=== PATIENT | female | born 2000 | race Caucasian/White ===

== ENCOUNTER 2020-03-31 15:16 | Outpatient (CLI) | payer BC, SELFPAY ==
--- NOTE | ~2020-03-31 | US_ITS ---
EXAMINATION: US OB <=14 wk fetus w TV EXAM DATE: 03/31/2020 16:03 INDICATION: Spontaneous . First trimester. TECHNIQUE: Pelvic obstetrical transabdominal and transvaginal sonogram was performed by a technsharmin jacobson. There are multiple grayscale and Doppler images available for interpretation. There are no venkat ier studies of this gestation for comparison. FINDINGS: Uterus measures 7.4 x 4.8 x 6.4 cm. There is intrauterine gestation sac. The 1.0 cm mean sac diameter corresponds to estimated gestational age by ultrasound of 5 weeks 4 days, estimated date of confinement 11/27/2020. Yolk sac is identified, but there is no pole identified at this time . There is no sonographic evidence of subchorionic hemorrhage. Left ovary has a thick-walled cystic region measuring 2.2 x 1.6 x 1.8 cm, with proteinaceous fluid in side, some peripheral vascularity surrounding this. Most likely the corpus luteal cyst. There is no f etal pole or yolk sac identified to suggest concurrent ectopic. The right ovary is morphologically no rmal. IMPRESSION: 1. Intrauterine gestation sac, MSD corresponding to age 5 weeks 4 days. Could be viable bu t pole identified at this time. 2. Complex cystic left ovarian lesion most likely the corpus luteal cyst. 3. Consider repeat ultrasound in 1-2 weeks. Reviewed, dictated and finalized at location A. IMPRESSION: 1. Intrauterine gestation sac, MSD corresponding to age 5 weeks 4 days. Could be viable but pole identified at this time. 2. Complex cystic left ovarian lesion most likely the corpus luteal cyst. 3. Consider repeat ultrasound in 1-2 weeks.
== END 2020-03-31 15:17 | disposition home or self-care (01) ==
PROVIDERS: PCP Family Medicine; Visit Provider Obstetrics & Gynecology
DX: O26.21 Pregnancy care for patient with recurrent pregnancy loss, first trimester (principal); N83.202 Unspecified ovarian cyst, left side
CPT/HCPCS: 76801; 76817

== ENCOUNTER 2020-04-14 09:43 | Outpatient (CLI) | payer BC, SELFPAY ==
--- NOTE | ~2020-04-14 | US_ITS ---
EXAMINATION: US OB <= 14 weeks fetus DATE: 04/14/2020 10:11 INDICATION: Evaluate viability TECHNIQUE: Real-time transabdominal obstetric ultrasound. FINDINGS: Comparison to ultrasound dated 03/31/2020 The uterus measures 10.2 x 5.9 x 7.1 cm. There is an intrauterine gestational sac, with pole id entified. The crown rump length measures 1.35 cm, which correlates with a estimated gestational age of 7 weeks 4 days. heart tones are identified measuring 161 bpm. There is a small subchorioni c hemorrhage measuring 3.5 x 1.9 x 1.8 cm. IMPRESSION: 1. SL IUP with an EGA of 7 weeks, days (EDC by current ultrasound of 11/27/2020). 2: Small subchorionic hemorrhage. Reviewed, dictated and finalized at location A. IMPRESSION: 1. SL IUP with an EGA of 7 weeks, days (EDC by current ultrasound of 11/27/2020 ). 2: Small subchorionic hemorrhage.
== END 2020-04-14 09:44 | disposition home or self-care (01) ==
LOC: ANHIMG 09:46
PROVIDERS: PCP Family Medicine; Visit Provider Obstetrics & Gynecology
DX: O46.91 Antepartum hemorrhage, unspecified, first trimester (principal); Z3A.01 Less than 8 weeks gestation of pregnancy
CPT/HCPCS: 76801

== ENCOUNTER 2020-05-11 11:24 | Outpatient (CLI) | payer BC, SELFPAY ==
--- NOTE | ~2020-05-11 | US_ITS ---
EXAMINATION: US OB <= 14 weeks fetus DATE: 05/11/2020 13:44 INDICATION: Subchorionic hematoma, first trimester TECHNIQUE: Real-time pelvic transabdominal and transvaginal ultrasound was performed. COMPARISON: 04/14/2020 FINDINGS: The uterus measures 14.7 x 7.5 x 6.8 cm. There is an intrauterine gestational sac. There i s a hypoechoic area adjacent to the gestational sac which demonstrates slight interval decrease in si ze and now has a more uniformly cystic appearance. heart motion is identified measuring 171 anjali ts per minute (bpm) by M-mode Doppler. The crown rump length measures 5.3 cm , which correlates with an estimated gestational age of 12 weeks and 0 day(s) (+/-) 8 day(s). The ovaries are not visualized however no adnexal abnormality is seen. There is no free fluid in the pelvis. IMPRESSION: 1. Small subchorionic hemorrhage with slight decrease in size. Reviewed, dictated and finalized at location A.
== END 2020-05-11 11:25 | disposition home or self-care (01) ==
PROVIDERS: PCP Family Medicine; Visit Provider Obstetrics & Gynecology
DX: O43.899 Other placental disorders, unspecified trimester (principal); Z3A.00 Weeks of gestation of pregnancy not specified
CPT/HCPCS: 76801

== ENCOUNTER 2020-05-26 14:36 | Outpatient (CLI) | payer BC, SELFPAY ==
--- NOTE | ~2020-05-26 | US_ITS ---
US OB follow up 05/26/2020 15:37 Indication: Follow-up subchorionic hemorrhage Procedure: Real-time Limited obstetrical ultrasound using transabdominal technique Comparison: Comparison to multiple prior studies sequentially, with oldest reviewed study dated 03/31. Findings: There is a single living intrauterine in variable presentation. heart rate 163 BPM. Amniotic fluid is subjectively normal. No evidence for subchorionic hemorrhage on current ex amination. Ovaries not visualized. Uterus measures 14.2 x 10 x 6.6 cm. Impression: 1: Single living intrauterine with heart rate of 163 BPM. 2: No subchorionic hemorrhage identified on current study. Reviewed, dictated and finalized at location A. Impression: 1: Single living intrauterine with heart rate of 163 BPM. 2: No subchorionic hemorrhage identified on current study.
== END 2020-05-26 14:37 | disposition home or self-care (01) ==
PROVIDERS: PCP Family Medicine; Visit Provider Obstetrics & Gynecology
DX: O36.8910 Maternal care for other specified fetal problems, first trimester, not applicable or unspecified (principal)
CPT/HCPCS: 76816

== ENCOUNTER → 2020-06-28 09:01 | Outpatient (CLI) | payer BC, SELFPAY ==
--- NOTE | ~2020-06-28 | US_ITS ---
EXAMINATION: US OB >= 14 weeks Fetus EXAM DATE: 06/28/2020 09:32 INDICATION: anatomy. 2nd trimester. TECHNIQUE: Pelvic obstetrical transabdominal sonogram was performed by a technologist. There are mu ltiple grayscale and Doppler images available for interpretation. There are no earlier studies of th is gestation for comparison. FINDINGS: There is a single fetus identified in vertex presentation with a heart rate of 140 beats pe r minute. The placenta is located in the anterior position. There is no sonographic evidence of retr oplacental hemorrhage identified. Placental margin to internal cervical os distance is 4.2 cm. BIOMETRIC DATA: Biparietal diameter (BPD): 4.3cm ----------------> 18 weeks 6 days. Head circumference (HC): 16.0 cm ----------------> 18 weeks 6 days. Abdominal circumference (AC): 12.9 cm ----------> 18 weeks 3 days. Femur length (FL): 2.9 cm --------------------------> 18 weeks 5 days. These measurements are concordant. HC/AC ratio is 1.25 (The 5th -- 95th percentile range is 1.09-1.26. Estimated weight is 250 g +/- 37 g. This is the 58th percentile when the currently reported cl inical gestation age 18 weeks 3 days, clinical estimated date of delivery (MAYI-OPE) 11/26/2020 is used. estimated gestational age based on measurements from this exam is 18 weeks 5 days, with an est imated date of delivery (MAYI-AUA) 11/24/2020. ANATOMIC SURVEY: The following anatomy was abnormal: Two-vessel umbilical cord. The following anatomy is identified and is sonographically normal in appearance: Cerebral ventricles Cerebellum Cisterna magna Nuchal fold CTL-spine Four-chamber heart Diaphragm Stomach Kidneys Bladder Cord insertion IMPRESSION: 1. Single fetus in vertex presentation with heart rate 140 beats per minute. 2. Estimated weight of 250 grams, 58th percentile using the currently reported clinical gestat ion age of 18 weeks 3 days, MAYI(OPE) 11/26. 3. Two-vessel umbilical cord cord. Other anatomy normal. Reviewed, dictated and finalized at location A. IMPRESSION: 1. Single fetus in vertex presentation with heart rate 140 beats per minute. 2. Estimated weight of 250 grams, 58th percentile using the currently re ported clinical gestation age of 18 weeks 3 days, MAYI(OPE) 11/26. 3. Two-vessel umbilical cord cord. Other anatomy normal.
== END ==
PROVIDERS: Visit Provider Obstetrics & Gynecology
DX: Z34.92 Encounter for supervision of normal pregnancy, unspecified, second trimester (principal); Z3A.18 18 weeks gestation of pregnancy
CPT/HCPCS: 76805

== ENCOUNTER 2020-09-24 13:44 | Observation (INO) | payer BC, SELFPAY ==
[2020-09-24] VITALS (7 sets, daily range): BP systolic 108–119; BP diastolic 68–80; PULSE 94–106; BMI 24.2
--- NOTE | ~2020-09-24 | US_ITS ---
EXAMINATION: US right upper quadrant DATE: 09/24/2020 19:19 INDICATION: Right upper quadrant abdominal pain. TECHNIQUE: Multiple grayscale and Doppler ultrasound images of the abdomen were obtained. COMPARISON: CT abdomen and pelvis 05/04/2019 FINDINGS: The pancreas is obscured by bowel gas. The liver is normal without focal lesion. No liver s urface nodularity. There is normal flow in main portal vein. The gallbladder is absent. The common du ct is normal and measures 6 mm. IMPRESSION: 1. Normal right upper quadrant ultrasound status post cholecystectomy. Reviewed, dictated and finalized at location A. EXPORT COORDINATOR
[2020-09-24] MEDS: FAMOTIDINE 20 MG TABLET PO (15:15)
[2020-09-24 15:16] LABS: Basophils Percent Auto 0.4 % (0.2-1.2); Eosinophils Absolute Auto 0.1 K/mm3 (0-0.3); Eosinophils Percent Auto 1.3 % (0-4.4); Hematocrit 29.6 % (37.0-47.0); Hemoglobin 10.1 g/dL (12.0-15.0); Immature Granulocyte Absolute 0.06 K/mm3 (0.00-0.031); Immature Granulocyte Percent A 0.8 % (0-0.5); Lymphocytes Absolute Auto 0.92 K/mm3 (0.9-3.2); Lymphocytes Percent Auto 11.8 % (18.3-44.2); Mean Corpuscular HGB Conc 34.1 g/dl (32-36); Mean Corpuscular Hemoglobin 33.2 pg (26-34); Mean Corpuscular Volume 97.4 fl (80-100); Mean Platelet Volume 10.6 fl (7.4-10.4); Monocytes Absolute Auto 0.5 K/mm3 (0.1-0.6); Monocytes Percent Auto 6.2 % (2.6-8.5); Neutrophils Absolute Auto 6.2 K/mm3 (1.3-6.7); Neutrophils Percent Auto 79.5 % (45.5-73.1); Platelet Count Result 157 k/mm3 (150-375); Red Blood Count 3.04 M/mm3 (4.2-5.4); Red Cell Distribution Width 13.8 % (11.5-14.5); White Blood Count 7.8 K/mm3 (4.5-10.0)
[2020-09-24 15:25] LABS: Add Urine Microscopic? YES; Appearance Urine Cloudy (Clear); Bacteria Urine Trace /hpf; Bilirubin Urine Negative (Negative); Blood Urine Negative (Negative); Color Urine Yellow (Yellow); Glucose Urine UA Negative (Negative); Ketones Urine Negative (Negative); Leukocyte Esterase Ur 3+ LEU/UL (NEGATIVE); Nitrate Urine Negative (Negative); Protein Urine Negative (Negative); RBC Urine 0-2 /hpf (0-2); Squamous Epithelial Cell Urine Many /hpf (Few); Urobilinogen Urine Negative mg/dL (<2.0)
[2020-09-24 15:30] LABS: Alanine Aminotransferase 19 U/L (4-35); Albumin Level 3.7 g/dL (3.5-5.1); Alkaline Phosphatase 110 U/L (38-126); Anion Gap 6 mmol/L (8-16); Aspartate Amino Transferase 21 U/L (14-36); Bilirubin,Total 0.4 mg/dL (0.2-1.3); Blood Urea Nitrogen 7 mg/dL (7-17); Calcium 9.3 mg/dL (8.4-10.2); Carbon Dioxide 24 mmol/L (22-30); Chloride 107 mmol/L (98-107); Estimated Glomerular Filt Rate > 60; Glucose 112 mg/dL (65-105); Potassium 4.5 mmol/L (3.4-5.0); Sodium 137 mmol/L (137-145)
[2020-09-24 15:31] LABS: Amylase 54 U/L (30-110); Lipase 81 U/L (23-300)
[2020-09-24 15:54] LABS: Uric Acid 5.4 mg/dL (2.5-7.5)
[2020-09-24] MEDS: HYDROcodone/acetaminophen (*CRX) 5-325 MG TABLET 1 TAB PO (17:21)
[2020-09-24] MEDS: SIMETHICONE 80 MG TAB.CHEW PO (17:23)
[2020-09-24] MEDS: ONDANSETRON HCL ODT 4 MG TABLET PO (18:52)
[2020-09-24] MEDS: PANTOPRAZOLE 40 MG TABLET PO (18:52)
--- NOTE | 2020-09-24 19:01 | OBADM ---
This patient, Cathy Bautista, admitted to the OB room OB Post 115 for observation. Patient/family oriented to hospital policies and general routines including ID bracelet, bed and alarms, visiting hours, pain management, procedures, bathroom and other care routines, personal items, smoking policy, room service/diet, and visiting hours. Patient/Family are encouraged to report perceived risks to care and to ask questions if they do not understand what they are told or what they should do.
--- NOTE | 2020-10-08 12:05 | PM.OBTRLD ---
OB - Triage/Final Diagnosis Evaluation Laboratory results: Laboratory Tests 09/24/20 09/24/20 09/24/20 15:02 15:02 15:02 WBC 7.8 RBC 3.04 L Hgb 10.1 L Hct 29.6 L MCV 97.4 MCH 33.2 MCHC 34.1 RDW 13.8 Plt Count 157 MPV 10.6 H Immature Gran % (Auto) 0.8 H Neut % (Auto) 79.5 H Lymph % (Auto) 11.8 L [place] % (Auto) 6.2 Eos % (Auto) 1.3 Baso % (Auto) 0.4 Lymph # (Auto) 0.92 [place] # (Auto) 0.5 Eos # (Auto) 0.1 Baso # (Auto) 0.0 Abs Immat Gran (auto) 0.06 H Absolute Neuts (auto) 6.2 Absolute Nucleated RBC 0.0 Nucleated RBC % 0.0 Sodium 137 Potassium 4.5 Chloride 107 Carbon Dioxide 24 Anion Gap 6 L BUN 7 Creatinine 0.60 L Estim Creat Clear Calc Not Reportable Estimated GFR > 60 Glucose 112 H Uric Acid Calcium 9.3 Total Bilirubin 0.4 AST 21 ALT 19 Alkaline Phosphatase 110 Total Protein 6.0 L Albumin 3.7 Amylase Lipase Urine Color Yellow Urine Appearance Cloudy H Urine pH 7.0 Ur Specific [place] 1.010 Urine Protein Negative Urine Glucose (UA) Negative Urine Ketones Negative Ur Blood (Man) Negative Urine Nitrate Negative Urine Bilirubin Negative Urine Urobilinogen Negative Ur Leukocyte Esterase 3+ H Urine RBC 0-2 Urine WBC 7-9 H Ur Squamous Epith Cells Many H Urine Bacteria Trace 09/24/20 09/24/20 15:02 15:02 WBC RBC Hgb Hct MCV MCH MCHC RDW Plt Count MPV Immature Gran % (Auto) Neut % (Auto) Lymph % (Auto) [place] % (Auto) Eos % (Auto) Baso % (Auto) Lymph # (Auto) [place] # (Auto) Eos # (Auto) Baso # (Auto) Abs Immat Gran (auto) Absolute Neuts (auto) Absolute Nucleated RBC Nucleated RBC % Sodium Potassium Chloride Carbon Dioxide Anion Gap BUN Creatinine Estim Creat Clear Calc Estimated GFR Glucose Uric Acid 5.4 Calcium Total Bilirubin AST ALT Alkaline Phosphatase Total Protein Albumin Amylase 54 Lipase 81 Urine Color Urine Appearance Urine pH Ur Specific [place] Urine Protein Urine Glucose (UA) Urine Ketones Ur Blood (Man) Urine Nitrate Urine Bilirubin Urine Urobilinogen Ur Leukocyte Esterase Urine RBC Urine WBC Ur Squamous Epith Cells Urine Bacteria Final Diagnosis (1) Pain of round ligament complicating , antepartum: Code(s): O26.899 - Other specified related conditions, unspecified trimester; R10.2 - Pelvic and perineal pain Status: Acute (2) Musculoskeletal pain: Code(s): M79.18 - Myalgia, other site Status: Acute
== END 2020-09-24 20:40 | disposition home or self-care (01) ==
PROVIDERS: Admitting Provider Obstetrics & Gynecology; PCP Family Medicine; Visit Provider Obstetrics & Gynecology
DX: O26.893 Other specified pregnancy related conditions, third trimester (principal); R10.2 Pelvic and perineal pain; M79.18 Myalgia, other site; Z3A.31 31 weeks gestation of pregnancy
CPT/HCPCS: 36415; 76705; 80053; 81001; 82150; 83690; 84550; 85025; 87086; A9270; G0378; G0379

== ENCOUNTER 2020-11-13 12:22 | Outpatient (RCR) | payer BC, SELFPAY ==
[2020-10-08 12:53] VITALS: BP 113/73; PULSE 95
[2020-10-16 11:09] VITALS: BP 110/74; PULSE 99
[2020-11-09 12:16] VITALS: BP 123/74; PULSE 94
[2020-11-13 13:15] VITALS: BP 124/72; PULSE 94
== END 2020-11-22 07:56 | disposition home or self-care (01) ==
LOC: ANHOBOP 12:22
PROVIDERS: PCP Family Medicine; Visit Provider Obstetrics & Gynecology
DX: P59.9 Neonatal jaundice, unspecified (principal)
CPT/HCPCS: 59025

== ENCOUNTER 2020-11-18 06:16 | Inpatient (IN) | payer BC, SELFPAY ==
[2020-11-18] VITALS (52 sets, daily range): BP systolic 110–147; BP diastolic 67–94; PULSE 79–118; RESP 18–20; TEMP 36.7–37.2; O2SAT 100; BMI 27.1
[2020-11-18] MEDS: OXYTOCIN 30 UNITS/NS 500 ML 30 UNITS/500 ML BAG IV CONT (07:05)
[2020-11-18] MEDS: LACTATED RINGERS 1,000 ML 125 ML IV CONT ×2 (07:05→08:59)
[2020-11-18 07:06] LABS: Basophils Percent Auto 0.3 % (0.2-1.2); Eosinophils Absolute Auto 0.2 K/mm3 (0-0.3); Eosinophils Percent Auto 1.7 % (0-4.4); Hematocrit 30.6 % (37.0-47.0); Hemoglobin 10.3 g/dL (12.0-15.0); Immature Granulocyte Absolute 0.07 K/mm3 (0.00-0.031); Immature Granulocyte Percent A 0.7 % (0-0.5); Lymphocytes Absolute Auto 1.24 K/mm3 (0.9-3.2); Lymphocytes Percent Auto 12.6 % (18.3-44.2); Mean Corpuscular HGB Conc 33.7 g/dl (32-36); Mean Corpuscular Hemoglobin 32.2 pg (26-34); Mean Corpuscular Volume 95.6 fl (80-100); Mean Platelet Volume 10.7 fl (7.4-10.4); Monocytes Absolute Auto 0.9 K/mm3 (0.1-0.6); Monocytes Percent Auto 8.8 % (2.6-8.5); Neutrophils Absolute Auto 7.4 K/mm3 (1.3-6.7); Neutrophils Percent Auto 75.9 % (45.5-73.1); Platelet Count Result 152 k/mm3 (150-375); Red Cell Distribution Width 13.9 % (11.5-14.5); White Blood Count 9.8 K/mm3 (4.5-10.0)
--- NOTE | 2020-11-18 07:55 | LDADM ---
This patient, Cathy Bautista, was admitted to Labor/Delivery/Recovery 107 on 11/18/20 at 06:16. Plans for labor, pain management and were discussed with patient. Patient/family oriented to hospital policies and general routines including ID bracelet, bed and alarms, visiting hours, pain management, procedures, bathroom and other care routines, personal items, smoking policy, room service/diet and guest tray routines, security routines, and visiting hours. Patient/Family are encouraged to report perceived risks to care and to ask questions if they do not understand what they are told or what they should do. See OBIX for further documentation.
--- NOTE | 2020-11-18 08:26 | P.PNAN_ITS ---
Anes - Eval Pre Procedure Procedure: labor epidural Date/Time: 11/18/20 08:26 Preop Diagnosis: labor pain Pre Op Diagnosis: Induction of Labor Patient Data Age: 20 Gender: F Height: 5 ft 6 in Weight: 76.34 kg Last Vital Signs Temp 37.2 C 11/18/20 07:10 Pulse 94 11/18/20 08:00 BP 139/90 11/18/20 08:00 Allergies Allergy/AdvReac Type Severity Reaction Status Date / Time No Known Allergies Allergy Verified 10/16/20 11:11 Home Medications Medication Instructions Recorded Confirmed Type PNV cmb#95-ferrous fumarate-FA 1 tablet PO DAILY 10/16/20 10/16/20 History [] ergocalciferol (vitamin D2) 1,250 mcg PO WEEKLY 10/16/20 10/16/20 History [Vitamin D2] ferrous sulfate 325 mg PO BID 10/16/20 10/16/20 History Laboratory Tests 11/18/20 11/18/20 06:43 06:43 WBC 9.8 K/mm3 K/mm3 (4.5-10.0) RBC 3.20 M/mm3 L M/mm3 (4.2-5.4) Hgb 10.3 g/dL L g/dL (12.0-15.0) Hct 30.6 % L % (37.0-47.0) MCV 95.6 fl fl (80-100) MCH 32.2 pg pg (26-34) MCHC 33.7 g/dl g/dl (32-36) RDW 13.9 % % (11.5-14.5) Plt Count 152 k/mm3 k/mm3 (150-375) MPV 10.7 fl H fl (7.4-10.4) Immature Gran % (Auto) 0.7 % H % (0-0.5) Neut % (Auto) 75.9 % H % (45.5-73.1) Lymph % (Auto) 12.6 % L % (18.3-44.2) [place] % (Auto) 8.8 % H % (2.6-8.5) Eos % (Auto) 1.7 % % (0-4.4) Baso % (Auto) 0.3 % % (0.2-1.2) Lymph # (Auto) 1.24 K/mm3 K/mm3 (0.9-3.2) [place] # (Auto) 0.9 K/mm3 H K/mm3 (0.1-0.6) Eos # (Auto) 0.2 K/mm3 K/mm3 (0-0.3) Baso # (Auto) 0.0 K/mm3 K/mm3 (0.0-0.1) Abs Immat Gran (auto) 0.07 K/mm3 H K/mm3 (0.00-0.031) Absolute Neuts (auto) 7.4 K/mm3 H K/mm3 (1.3-6.7) Absolute Nucleated RBC 0.0 K/mm3 K/mm3 (0.0-0.012) Nucleated RBC % 0.0 % % (0.0-0.2) RPR Pending Patient hx anesthesia problems: none Family hx anesthesia problems: none PMFSH Past Medical History Medical History (Updated 10/08/20 @ 12:06 by Renato Stephens MD) Musculoskeletal pain Pain of round ligament complicating , antepartum Family History Family History (Updated 10/25/20 @ 13:36 by Kristi Khan RN) Father Malignant neoplasm of prostate Grandparent Family history of malignant neoplasm of brain Malignant neoplasm of prostate Social History Social History Smoking status: Never smoker Alcohol intake: never Substance use: never Spiritual care concerns: No Exam Day of Procedure 11/18/20 08:26
--- NOTE | 2020-11-18 08:31 | P.PNAN_ITS ---
Anes - Eval Pre Procedure Procedure: labor epidural Date/Time: 11/18/20 08:31 Preop Diagnosis: labor pain Pre Op Diagnosis: Induction of Labor Patient Data Age: 20 Gender: F Height: 5 ft 6 in Weight: 76.34 kg Last Vital Signs Temp 37.2 C 11/18/20 07:10 Pulse 97 11/18/20 08:30 BP 144/89 H 11/18/20 08:30 Allergies Allergy/AdvReac Type Severity Reaction Status Date / Time No Known Allergies Allergy Verified 10/16/20 11:11 Home Medications Medication Instructions Recorded Confirmed Type PNV cmb#95-ferrous fumarate-FA 1 tablet PO DAILY 10/16/20 10/16/20 History [] ergocalciferol (vitamin D2) 1,250 mcg PO WEEKLY 10/16/20 10/16/20 History [Vitamin D2] ferrous sulfate 325 mg PO BID 10/16/20 10/16/20 History Laboratory Tests 11/18/20 11/18/20 06:43 06:43 WBC 9.8 K/mm3 K/mm3 (4.5-10.0) RBC 3.20 M/mm3 L M/mm3 (4.2-5.4) Hgb 10.3 g/dL L g/dL (12.0-15.0) Hct 30.6 % L % (37.0-47.0) MCV 95.6 fl fl (80-100) MCH 32.2 pg pg (26-34) MCHC 33.7 g/dl g/dl (32-36) RDW 13.9 % % (11.5-14.5) Plt Count 152 k/mm3 k/mm3 (150-375) MPV 10.7 fl H fl (7.4-10.4) Immature Gran % (Auto) 0.7 % H % (0-0.5) Neut % (Auto) 75.9 % H % (45.5-73.1) Lymph % (Auto) 12.6 % L % (18.3-44.2) [place] % (Auto) 8.8 % H % (2.6-8.5) Eos % (Auto) 1.7 % % (0-4.4) Baso % (Auto) 0.3 % % (0.2-1.2) Lymph # (Auto) 1.24 K/mm3 K/mm3 (0.9-3.2) [place] # (Auto) 0.9 K/mm3 H K/mm3 (0.1-0.6) Eos # (Auto) 0.2 K/mm3 K/mm3 (0-0.3) Baso # (Auto) 0.0 K/mm3 K/mm3 (0.0-0.1) Abs Immat Gran (auto) 0.07 K/mm3 H K/mm3 (0.00-0.031) Absolute Neuts (auto) 7.4 K/mm3 H K/mm3 (1.3-6.7) Absolute Nucleated RBC 0.0 K/mm3 K/mm3 (0.0-0.012) Nucleated RBC % 0.0 % % (0.0-0.2) RPR Pending Patient hx anesthesia problems: none Family hx anesthesia problems: none PMFSH Past Medical History Medical History (Updated 10/08/20 @ 12:06 by Renato Stephens MD) Musculoskeletal pain Pain of round ligament complicating , antepartum Family History Family History (Updated 10/25/20 @ 13:36 by Kristi Khan RN) Father Malignant neoplasm of prostate Grandparent Family history of malignant neoplasm of brain Malignant neoplasm of prostate Social History Social History Smoking status: Never smoker Alcohol intake: never Substance use: never Spiritual care concerns: No Exam Day of Procedure 11/18/20 08:31
--- NOTE | 2020-11-18 10:00 | WPDOBADMIT ---
Obstetrics - Admit Note Admission Note: 0815 AROM clear fluid /-2 vertexPrenatal record reviewed. No pertinent additions to the history and/or any subsequent changes in the physical findings that are not consistent with the expected course of the were found. Additions to the history and/or subsequent changes in the physical findings follow. None.
--- NOTE | 2020-11-18 10:01 | PM.OBPRVD ---
OB - Delivery Note Procedure Delivery date: 11/18/20 Procedure: events: Labor Induction Intrapartal events: None Induction method: AROM and per pitocin protocol Delivery monitor: external FHT and external uterine Route of delivery: Laceration Description: None Specimen: Yes Quantitative Blood Loss (ml): 160 Anesthesia type: Epidural Disposition: observation Baby Date of : 11/18/20 Time of : 09:48 Weeks of gestation at delivery: 39 Infant gender: Male Weight (pounds): 7 Weight (ounces): 14 presentation: vertex position: Left Occiput Anterior Placenta delivery description: Spontaneous cord vessel description: 2 Vessels, Nuchal Cord, Clamped/Cut and Around Body x1 score one minute: 9 score five minutes: 9
[2020-11-18] MEDS: OXYTOCIN 30 UNITS/NS 500 ML 30 UNITS/500 ML BAG 125 UNITS IV CONT (10:30)
[2020-11-18 11:13] LABS: Rapid Plasma Reagin Non-Reactive (NonReactive)
--- NOTE | 2020-11-18 12:09 | OBPPTRN ---
Patient transferred to post room # 282 via wheelchair. Support person present. Oriented to unit, room, information board, rooming in, admission packet and security measures. Patient verbalizes understanding.
[2020-11-19 05:31] LABS: Hemoglobin 9.2 g/dL (12.0-15.0)
[2020-11-19 07:50] VITALS: BP 129/85; PULSE 75; RESP 18; TEMP 36.3
--- NOTE | 2020-11-19 09:04 | PM.OBPNVD ---
OB - PN: Subj Subjective Date/time seen: 11/19/20 09:04 Patient comments: no complaints and pain well controlled baby status: doing well OB - PN: Obj Data Labs CBC & Chem 7: 11/19/20 05:23 Labs: Laboratory Results - last 24 hr 11/18/20 11/19/20 06:43 05:23 Hgb 9.2 L Hct 28.0 L RPR Non-reactive OB - PN A/P Plan day: 1 Plan: routine care, discharge home and follow up 6 weeks Comments: declines bc Time Spent With Patient Time: Total time spent is greater than 50% in coordination of care (as documented) at patient's floor/unit and/or counseling patient: Exam : Bimanual exam- vagina & uterus: other (Uterus firm, nt @U)
--- NOTE | 2020-11-19 10:36 | WPDANLDPN2 ---
Anes-Prog Note L&D Date/Time: 11/19/20 10:36 Comfortable throughout: labor and delivery Neuraxial method: epidural Epidural/Spinal procedure site: clean & non-tender Neuro status: Neuro function grossly intact. Cardiovascular status: normal Respiratory status: normal Airway patency: baseline Mental status: baseline Post-Op hydration status: normal Vital Signs: Last Vital Signs Temp 37.1 C 11/18/20 20:15 Pulse 83 11/18/20 20:15 Resp 18 11/18/20 20:15 BP 128/83 11/18/20 20:15 Pulse Ox 100 11/18/20 09:37 Pain score (VAS): 0 Post-procedural complaints: none Patient feedback: Patient satisfied with anesthetic care.
[2020-11-19] MEDS: DOCUSATE SODIUM 100 MG CAPSULE PO (13:16)
[2020-11-19] MEDS: MULTIVIT/MIN/PREN/FOL AC/IRON TABLET 1 TAB PO (13:17)
[2020-11-19] MEDS: POLYSACCHARIDE IRON COMPLEX 150 MG CAPSULE PO (13:17)
[2020-11-19] MEDS: MEASLES,MUMPS,RUBELLA VACCINE 0.5 ML VIAL SUB-Q (13:17)
[2020-11-22 08:01] VITALS: BP 138/90; PULSE 87; RESP 14; TEMP 36.9
--- NOTE | 2020-11-29 08:21 | PM.OBDSVD ---
DS: Admitting Diagnosis Admitting Diagnosis Admitting Diagnosis: DS: Discharge Diagnosis Discharge Diagnosis (1) (normal spontaneous vaginal delivery): Code(s): O80 - Encounter for full-term uncomplicated delivery Status: Acute OB - DS: Summary OB Procedures : NST and Ultrasound OB Procedures Intrapartum: Spontaneous Vag Delivery OB Procedures: : None Time Spent with Patient Time attestation: Total time spent providing and/or coordinating discharge services: DS: Data Data Completed and Pending Completed studies during hospitalization: Pending at discharge 11/18/20 10:30 Surgical [PTH] Routine Discharge Plan Discharge Attending physician on discharge: Renato Stephens Discharging Clinician: Renato Stephens Patient Disposition: Home, Self-Care Activity: may shower and pelvic rest Diet: regular Discharge Instructions: Education: Mom and Baby Guide Given to: Mother Follow-Up: Call your delivering provider's office for an appointment to be seen in: call. Mom and baby should come to the [facility] for the follow-up appointment. Appointment Date/Time: November 22, 2020 at 8:00 am What to expect at your follow-up visit: Physical Assessment Call [phone] if you are unable to keep your appointment time. BREAST CARE: * Wear a snug supportive bra. * For engorgement discomfort: Breast Feeding: * Apply warm moist washcloths * Express milk as needed to relieve engorgement * Wear loose clothing * For sore nipples: * Identify correct latch-on * Apply warm moist washcloths before and after nursing * Air dry nipples after nursing * May apply Lansinoh cream to nipples PERINEAL CARE: * Until bleeding stops, use your ermias bottle after urinating * Change your pad frequently throughout the day * No tub baths until seen by your physician - You may shower ACTIVITY: * Rest as much as possible. * Do not exercise or lift anything heavier than your baby (such as laundry or other children.) * Avoid stairs or driving as much as possible. * Do not put anything into the vagina. No douching, tampons, or sexual activity until seen by physician. NOTIFY PHYSICIAN IF YOU HAVE ANY QUESTIONS OR IF ANY OF THE FOLLOWING SYMPTOMS OCCUR: * If your perineum becomes red, swollen, or more painful than what you have experienced in the hospital. * If your vaginal bleeding becomes foul smelling. * If your vaginal bleeding becomes more heavy than a period or if your bleeding changes from pink to bright red. However, you may pass an occasional walnut-sized clot once or twice for the first week . * If you experience a sharp, shooting pain in you calves. * If you discover a hard, reddened area on your breast or if you experience flu-like symptoms. DIET: * Eat regular, well-balanced meals. * Drink plenty of fluids daily. If , drink to thirst. Patient Instructions: Antibiotic Form Stand Alone Forms: General Discharge Information Follow-up/Referrals: Renato Stephens MD [Physician] - Call for Appointment Discharge Medications: Continued ferrous sulfate 325 mg (65 mg iron) Tablet 325 mg PO BID RF: 0 ergocalciferol (vitamin D2) [Vitamin D2] 1,250 mcg (50,000 unit) Capsule 1,250 mcg PO WEEKLY RF: 0 PNV cmb#95-ferrous fumarate-FA [] 28 mg iron- 800 mcg Tablet 1 tablet PO DAILY RF: 0 Date of admission: 11/18/20 06:16 Primary Care Provider: Abhay Perez Admitting Provider: Renato Stephens Attending physician on admission: Regina Dhillon Condition: Stable
== END 2020-11-19 14:40 | disposition home or self-care (01) | DRG 807 ==
LOC: ANHLDR 10:04 → ANHOB2 11-19 03:25 → ANHLDR 11-23 10:02 → ANHOB2 11-23 10:02
PROVIDERS: Admitting Provider Obstetrics & Gynecology; PCP Family Medicine; Visit Provider Obstetrics & Gynecology Gynecology
DX: O69.89X0 Labor and delivery complicated by other cord complications, not applicable or unspecified (principal); Z37.0 Single live birth; Z3A.39 39 weeks gestation of pregnancy; O69.82X0 Labor and delivery complicated by other cord entanglement, without compression, not applicable or unspecified
CPT/HCPCS: 36415; 85014; 85018; 85025; 86592; 86850; 86900; 86901; 88307; 90710; A9270; J2590; J2795; J7120

== ENCOUNTER 2021-11-15 15:17 | Outpatient (CLI) | payer BC, SELFPAY ==
[2021-11-15 16:47] LABS: SARS-CoV-2 RNA PCR Negative (Negative)
== END 2021-11-15 15:18 | disposition home or self-care (01) ==
LOC: CHSLAB 15:19
PROVIDERS: PCP Family Medicine; Visit Provider Family Medicine
DX: J06.9 Acute upper respiratory infection, unspecified (principal); Z20.822 Contact with and (suspected) exposure to COVID-19
CPT/HCPCS: C9803; U0003; U0005

== ENCOUNTER → 2022-04-04 12:24 | Outpatient (CLI) | payer BC, SELFPAY ==
--- NOTE | ~2022-04-04 | US_ITS ---
EXAMINATION: US OB transvaginal DATE: 04/04/2022 12:53 INDICATION: Positive test. Uncertain dates. Abdominal pain. TECHNIQUE: Real-time transvaginal obstetric ultrasound. FINDINGS: No prior studies for comparison. The uterus measures 6.7 x 4.2 x 5.6 cm. Endometrium is thickened measuring 1 cm, although no gestatio nal sac or pole are identified. There is moderate free fluid in the pelvis. There is a 2.3 cm r ight ovarian cyst. The left ovary appears prominent with indistinct margins limiting evaluation of si ze. IMPRESSION: 1. Mildly thickened endometrium without evidence for intrauterine . Mildly prominent left ov jason. Considerations include very early intrauterine , failed and ectopic . Recommend follow-up with serial quantitative beta-hCG levels and ultrasound as clinically indicated . Reviewed, dictated and finalized at location A. IMPRESSION: 1. Mildly thickened endometrium without evidence for intrauterine . Mi ldly prominent left ovary. Considerations include very early intrauterine pregn talia, failed and ectopic . Recommend follow-up with serial q uantitative beta-hCG levels and ultrasound as clinically indicated.
== END ==
PROVIDERS: PCP Family Medicine; Visit Provider Family Medicine
DX: Z34.90 Encounter for supervision of normal pregnancy, unspecified, unspecified trimester (principal); Z3A.00 Weeks of gestation of pregnancy not specified; R10.84 Generalized abdominal pain
CPT/HCPCS: 76817

== ENCOUNTER → 2022-04-12 08:17 | Outpatient (CLI) | payer BC, SELFPAY ==
--- NOTE | ~2022-04-12 | US_ITS ---
US OB transvaginal 04/12/2022 08:59 Indication: Abnormal hCG levels which are decreasing Procedure: High-resolution transvaginal ultrasound of the pelvis Comparison: Ultrasound dated 04/04/2022 Findings: Uterus measures 6.4 x 4.4 x 5.4 cm. Endometrium is normal measuring 8 mm. No intrauterine g estational sac or pole identified. Right ovary contains a 5 x 3.5 x 3.5 cm complicated cyst. Le ft ovary is unremarkable measuring 2.4 x 1.5 x 1.2 cm. Small amount of free fluid in the right adnexa . Impression: 1: No evidence for intrauterine . Given the history of diminishing beta-hCG levels this like ly represents a failed . Ectopic is not excluded although less favored. There is a complicated right ovarian cyst measuring 5 cm, likely corpus luteal cyst. Recommend follow-up with q uantitative beta-hCG levels and ultrasound as clinically indicated. Reviewed, dictated and finalized at location A. Impression: 1: No evidence for intrauterine . Given the history of diminishing bet a-hCG levels this likely represents a failed . Ectopic is no t excluded although less favored. There is a complicated right ovarian cyst sandy suring 5 cm, likely corpus luteal cyst. Recommend follow-up with quantitative b eta-hCG levels and ultrasound as clinically indicated.
== END ==
PROVIDERS: PCP Family Medicine; Visit Provider Family Medicine
DX: O02.81 Inappropriate change in quantitative human chorionic gonadotropin (hCG) in early pregnancy (principal)
CPT/HCPCS: 76817

== ENCOUNTER 2022-04-14 14:10 | Emergency (ER) | payer BC, SELFPAY ==
--- NOTE | ~2022-04-14 | XR_ITS ---
XR abdomen/kub 1V 04/14/2022 14:49 INDICATION: Hematuria with abdomen pain TECHNIQUE: KUB COMPARISON: None FINDINGS: Bowel gas pattern is normal. There are cholecystectomy clips. There is no evidence of free air, mass, organomegaly, ascites or obstruction. No abnormal calculi are seen. The bones appear int act. IMPRESSION: 1: No acute abdominal abnormality identified. Reviewed, dictated and finalized at location A.
[2022-04-14 14:18] VITALS: BP 139/92; PULSE 93; RESP 16; TEMP 36.8; O2SAT 99
[2022-04-14] MEDS: KETOROLAC (*BKC) 60 MG/2 ML VIAL IM (14:50)
--- NOTE | 2022-04-14 15:29 | ED.ABDPAIN ---
HPI - Abdominal Pain General Chief Complaint: Abdominal Pain Stated Complaint: abd pain Time Seen by Provider: 04/14/22 14:30 Source: patient Mode of arrival: ambulatory Limitations: no limitations History of Present Illness HPI narrative: 22-year-old female presents with complaint of right-sided abdominal pain for several days. Also reports blood in urine for 3 to 4 weeks. Has been seeing her primary care physician for these issues. Recently had a positive test. Has had hCG levels drawn that are decreasing and has had 2 ultrasounds that show no . Patient's ultrasound on March 23 and April 04 both show a right ovarian cyst. Patient states that her PCP has not discussed with her that she has a right ovarian cyst. She reports that when blood in urine for started she was given an antibiotic but was told that urine was normal. She began having blood in urine again after completing antibiotic and was prescribed Levaquin which she is taking now. She reports that her urine and labs have been normal. She has not been referred to a urologist or a [facility]. Today she has had urgent care because she feels as though she is not getting any answers to what is causing her pain or blood in urine. All systems reviewed and negative except as noted above. Related Data Home Medications Medication Instructions Recorded Confirmed ergocalciferol (vitamin D2) 1,250 1,250 mcg PO WEEKLY 10/16/20 11/18/20 mcg (50,000 unit) capsule (Vitamin D2) ferrous sulfate 325 mg (65 mg 325 mg PO BID 10/16/20 11/18/20 iron) tablet 04/14/22 Allergies Allergy/AdvReac Type Severity Reaction Status Date / Time No Known Allergies Allergy Verified 10/16/20 11:11 Review of Systems Review of Systems: CONSTITUTIONAL: Denies fever, chills, or sweats. EYES: Denies visual changes, redness, or discharge. ENT: Denies rhinorrhea, congestion, sore throat, or otalgia. CARDIOVASCULAR: Denies chest pain, palpitations, or edema. RESPIRATORY: Denies cough or dyspnea. GASTROINTESTINAL: Reports right sided abdominal pain. Denies nausea, vomiting, or diarrhea. GENITOURINARY: Denies dysuria. Reports hematuria. SKIN: Denies rash or itching. MUSCULOSKELETAL: Denies back pain, joint pain, or myalgia. NEUROLOGIC: Denies headache, numbness, or weakness. PSYCHIATRIC: Denies anxiety or depression. All other systems reviewed are negative, except as documented in HPI. [facility] Past Medical History Medical History (Updated 04/14/22 @ 15:22 by Rina Leija NP) Musculoskeletal pain (normal spontaneous vaginal delivery) Pain of round ligament complicating , antepartum Family History Family History (Updated 10/25/20 @ 13:36 by Kristi Khan RN) Father Malignant neoplasm of prostate Grandparent Family history of malignant neoplasm of brain Malignant neoplasm of prostate Social History Social History Smoking status: Never smoker Alcohol intake: never Substance use: never Spiritual care concerns: No Comments At time of signature, agree with nursing past medical, surgical, social and family history. There is no relevant family history pertinent to the presenting complaint. Exam Narrative: GENERAL: This is a well-nourished, well-developed patient, in no apparent distress. HEAD: normocephalic, atraumatic. EYES: PERRL. Sclera clear/white. Vision is grossly intact. EARS: External ears normal NOSE: External nose normal NECK: Neck supple, non-tender without lymphadenopathy, masses or thyromegaly. CARDIOVASCULAR: Regular rate and rhythm without murmurs, gallops, or rubs. RESPIRATORY: Clear to auscultation. Breath sounds equal bilaterally. No wheezes, rales, or rhonchi. GASTROINTESTINAL: Abdomen soft, right-sided abdominal tenderness, nondistended. Bowel sounds are active. No hepato-splenomegaly, or palpable masses. No guarding. SKIN: warm, Dry, intact with no suspicious lesions or rash, good texture and turgor. NE
== END 2022-04-14 15:23 | disposition home or self-care (01) ==
PROVIDERS: Emergency Provider Nurse Practitioner Family; PCP Family Medicine
DX: R31.9 Hematuria, unspecified (principal); N83.201 Unspecified ovarian cyst, right side
CPT/HCPCS: 74018; 81003; 96372; 99213; G0463; J1885

== ENCOUNTER 2022-05-11 17:50 | Emergency (ER) | payer BC, SELFPAY ==
--- NOTE | ~2022-05-11 | CT_ITS ---
EXAMINATION: CT abdomen pelvis w con INDICATION: Right lower quadrant pain TECHNIQUE: Computed tomographic images of the abdomen and pelvis were obtained after the administrati on of 100 cc of Omnipaque 300 intravenous contrast. The dose-length product (DLP) was 291.58 mGy-cm. Automated exposure control and iterative reconstruction technique were employed. COMPARISON: 05/04/2019 FINDINGS: The lung bases are clear. The heart size is normal. The gallbladder is surgically absent. T he liver, spleen, pancreas, and adrenal glands are normal. The left kidney is unremarkable. There is a 4 mm stone at the right ureterovesicular junction which causes moderate hydroureteronephrosis. No p athologically enlarged abdominal or pelvic lymph nodes are identified. There is no free intraperitone al gas or evidence of bowel obstruction. A corpus luteum is noted in the right ovary. The appendix is normal. IMPRESSION: 1. 4 mm stone at the right ureterovesicular junction causing moderate hydroureteronephrosis. Reviewed, dictated and finalized at location F. IMPRESSION: 1. 4 mm stone at the right ureterovesicular junction causing moderate hydrouret eronephrosis.
[2022-05-11 18:05] VITALS: BP 141/97; PULSE 89; RESP 20; TEMP 36.7; O2SAT 100
[2022-05-11 18:36] LABS: Basophils Absolute Auto 0.03 K/mm3 (0.00-0.10); Basophils Percent Auto 0.3 % (0.0-1.0); Eosinophils Absolute Auto 0.13 K/mm3 (0.02-0.50); Eosinophils Percent Auto 1.2 % (1.0-6.0); Hematocrit 39.1 % (35.0-49.0); Immature Granulocyte Absolute 0.02 K/mm3 (0.00-0.00); Immature Granulocyte Percent A 0.2 % (0.0-0.0); Lymphocytes Absolute Auto 0.93 K/mm3 (1.10-4.50); Lymphocytes Percent Auto 8.9 % (18.0-42.0); Mean Corpuscular HGB Conc 33.2 g/dL (32.0-36.0); Mean Corpuscular Hemoglobin 31.8 pg (27.0-31.0); Mean Corpuscular Volume 95.6 fL (78.0-102.0); Mean Platelet Volume 11.3 fl (9.2-11.8); Monocytes Absolute Auto 0.65 K/mm3 (0.10-0.90); Monocytes Percent Auto 6.2 % (2.0-11.0); Neutrophils Absolute Auto 8.7 K/mm3 (1.7-7.2); Neutrophils Percent Auto 83.2 % (50.0-70.0); Platelet Count Result 190 K/mm3 (150-420); Red Blood Count 4.09 M/mm3 (4.20-5.40); Red Cell Distribution Width 12.4 % (11.6-14.4); White Blood Count 10.4 K/mm3 (4.8-10.8)
[2022-05-11 18:39] LABS: Add Urine Microscopic? YES; Appearance Urine Clear (Clear); Bilirubin Urine Negative (Negative); Blood Urine 3+ (Negative); Color Urine Yellow (Yellow); Glucose Urine UA Negative (Negative); Ketones Urine Negative (Negative); Leukocyte Esterase Ur Negative (Negative); Nitrate Urine Negative (Negative); Protein Urine 1+ (Negative); Specific Grav Ur >= 1.030 (1.010-1.020); Urobilinogen Urine 0.2 mg/dL (0.2-1.0)
[2022-05-11 18:45] LABS: Pregnancy On Board Control Positive; Urine Pregnancy Test Negative
[2022-05-11 18:52] LABS: Alanine Aminotransferase 20 U/L (14-59); Albumin Level 3.8 g/dL (3.4-5.0); Alkaline Phosphatase 60 U/L (46-116); Anion Gap 6 mmol/L (8-16); Aspartate Amino Transferase 12 U/L (15-37); Bilirubin,Total 0.4 mg/dL (0.00-1.00); Blood Urea Nitrogen 12 mg/dL (7-18); Calcium 8.7 mg/dL (8.5-10.1); Carbon Dioxide 25 mmol/L (21-32); Chloride 106 mmol/L (98-108); Estimated CRCL calculation 78 ml/min; Estimated Glomerular Filt Rate > 60; Glucose 136 mg/dL (70-99); Osmolality Calculated 285 mOsm/kg (285-295); Potassium 4.1 mmol/L (3.5-5.1); Sodium 137 mmol/L (136-145); Total Protein 7.1 g/dL (6.4-8.2)
[2022-05-11 18:53] LABS: Bacteria Urine 2+ /hpf; Mucus Urine Rare /lpf; RBC Urine 51-75 /hpf (0-2); Squamous Epithelial Cell Urine Few /hpf (Few); WBC Urine 0-3 /hpf (0-3)
[2022-05-11] MEDS: KETOROLAC 30 MG/ML VIAL (*BKC) IV PUSH (19:36)
[2022-05-11] MEDS: SODIUM CHLORIDE 0.9% IV 1,000 ML 999 ML IV CONT (19:37)
--- NOTE | 2022-05-11 19:56 | ED.ABDPAIN ---
HPI - Abdominal Pain General Chief Complaint: Abdominal Pain Stated Complaint: stomach pains Source: patient Mode of arrival: ambulatory Limitations: no limitations History of Present Illness HPI narrative: This is a 22-year-old female who presents with abdominal pain localizing to her right lower quadrant has had ultrasound of the pelvis about a month ago which showed a cyst in the right ovary, patient states that this pain is different rates it about a 7/10 with some some mild dysuria with no hematuria no flank pain no nausea vomiting no fever chills no chest pain or shortness of breath. MD elicited complaint: abdominal pain Onset (ago): hour(s) Pain Consistency: constant Location: RLQ Severity: moderate Pain scale (0-10): 7 Quality: aching Related Data Home Medications Medication Instructions Recorded Confirmed 04/14/22 Allergies Allergy/AdvReac Type Severity Reaction Status Date / Time No Known Allergies Allergy Verified 05/11/22 18:35 Review of Systems Review of Systems: All systems reviewed & are unremarkable except as noted in HPI and below PMFSH Past Medical History Medical History Musculoskeletal pain (normal spontaneous vaginal delivery) Pain of round ligament complicating , antepartum Family History Family History Father Malignant neoplasm of prostate Grandparent Family history of malignant neoplasm of brain Malignant neoplasm of prostate Social History Social History Smoking status: Never smoker Alcohol intake: never Substance use: never Spiritual care concerns: No Exam Const: General: healthy appearing HENMT: Head: normal to inspection Face and sinus: normal facial exam Mouth: Yes Normal oral and palatal mucosa present Eyes: Conjunctivae: conjunctivae normal Pupils: Equal, round and reactive pupils present EOM: EOMs intact bilaterally Neck: Neck: normal visual inspection, no lymphadenopathy and no meningeal signs Chest: Chest palpation & inspection: normal inspection of the chest Resp: Effort & Inspection: normal respiratory effort Auscultation: clear to auscultation bilaterally Cardio: Rate: regular rate Rhythm: regular rhythm GI: GI Palp: Yes Soft to palpation and Yes Tenderness to palpation present (GI) : General: Yes bladder normal to palpation Back/Spine/Pelvis: Back: no CVA tenderness Skin: General skin exam: normal color Rashes: no rashes Wounds: no wounds Neuro: General: patient oriented x3, moves all extremities and no meningeal signs Extrem: General: normal to inspection and no clubbing, cyanosis or edema Psych: Mental Status: mental status grossly normal Affect: normal affect Course Course Emergency Course: CT scan reviewed with patient patient has a 4mm kidney stone at the UVJ, patient did receive Toradol pain has improved, a UA and blood work reviewed with patient will give patient a strainer to go home with and prescriptions for pain. Vital Signs Vital signs: Vital Signs Temperature 36.7 C 05/11/22 18:05 Pulse Rate 89 05/11/22 18:05 Respiratory Rate 20 05/11/22 18:05 Blood Pressure 141/97 H 05/11/22 18:05 Pulse Oximetry 100 05/11/22 18:05 Oxygen Delivery Room Air 05/11/22 18:05 Temperature 36.7 C 05/11/22 18:05 Pulse Rate 89 05/11/22 18:05 Respiratory Rate 20 05/11/22 18:05 Blood Pressure 141/97 H 05/11/22 18:05 Pulse Oximetry 100 05/11/22 18:05 Oxygen Delivery Room Air 05/11/22 18:05 MDM - Abdominal Pain Lab Data Result diagrams: 05/11/22 18:28 05/11/22 18:28 Labs: Lab Results 05/11/22 05/11/22 05/11/22 Range/Units 18:16 18:28 18:28 WBC 10.4 (4.8-10.8) K/mm3 RBC 4.09 L (4.20-5.40) M/mm3 Hgb 13.0 (12.0-15.0) g/dL Hct 39.1 (35.0-
[2022-05-11 20:18] VITALS: PULSE 88; RESP 16; O2SAT 98
== END 2022-05-11 20:19 | disposition home or self-care (01) ==
PROVIDERS: Emergency Provider Emergency Medicine; PCP Family Medicine
DX: N20.0 Calculus of kidney (principal)
CPT/HCPCS: 36415; 74177; 80053; 81001; 81025; 85025; 96361; 96374; 99284; J1885; J7030; Q9967

== ENCOUNTER → 2022-06-13 11:20 | Outpatient (CLI) | payer BC, SELFPAY ==
--- NOTE | ~2022-06-13 | US_ITS ---
US retroperitoneal comp 06/13/2022 11:35 Procedure: Realtime transabdominal ultrasound of the kidneys and bladder. Indication: Right hydronephrosis. Recent kidney stones. Comparison: No prior studies for comparison. Findings: Renal echotexture is normal bilaterally without hydronephrosis, contour deforming mass or r enal calculus. The right kidney measures 10.3 cm and left kidney measures 10 cm. Bladder within norm al limits. Impression: 1: Unremarkable renal ultrasound. No stones, masses or hydronephrosis. Reviewed, dictated and finalized at location A. Impression: 1: Unremarkable renal ultrasound. No stones, masses or hydronephrosis.
== END ==
PROVIDERS: PCP Family Medicine; Visit Provider Nurse Practitioner Family
DX: N20.1 Calculus of ureter (principal)
CPT/HCPCS: 76770

== ENCOUNTER 2022-11-16 09:44 | Outpatient (CLI) | payer BC, SELFPAY ==
[2022-11-16 09:59] LABS: Basophils Absolute Auto 0.03 K/mm3 (0.00-0.10); Basophils Percent Auto 0.7 % (0.0-1.0); Eosinophils Absolute Auto 0.25 K/mm3 (0.02-0.50); Eosinophils Percent Auto 5.5 % (1.0-6.0); Hemoglobin 12.9 g/dL (12.0-15.0); Immature Granulocyte Absolute 0.01 K/mm3 (0.00-0.00); Immature Granulocyte Percent A 0.2 % (0.0-0.0); Lymphocytes Absolute Auto 1.21 K/mm3 (1.10-4.50); Lymphocytes Percent Auto 26.7 % (18.0-42.0); Mean Corpuscular HGB Conc 32.3 g/dL (32.0-36.0); Mean Corpuscular Hemoglobin 29.9 pg (27.0-31.0); Mean Corpuscular Volume 92.6 fL (78.0-102.0); Mean Platelet Volume 10.8 fl (9.2-11.8); Monocytes Absolute Auto 0.41 K/mm3 (0.10-0.90); Monocytes Percent Auto 9.1 % (2.0-11.0); Neutrophils Absolute Auto 2.6 K/mm3 (1.7-7.2); Neutrophils Percent Auto 57.8 % (50.0-70.0); Platelet Count Result 212 K/mm3 (150-420); Red Blood Count 4.32 M/mm3 (4.20-5.40); Red Cell Distribution Width 12.9 % (11.6-14.4); White Blood Count 4.5 K/mm3 (4.8-10.8)
[2022-11-16 11:33] LABS: Alanine Aminotransferase 21 U/L (14-59); Albumin Level 4.1 g/dL (3.4-5.0); Alkaline Phosphatase 73 U/L (46-116); Anion Gap 7 mmol/L (8-16); Aspartate Amino Transferase 10 U/L (15-37); Bilirubin,Total 0.7 mg/dL (0.00-1.00); Blood Urea Nitrogen 11 mg/dL (7-18); Calcium 9.1 mg/dL (8.5-10.1); Carbon Dioxide 29 mmol/L (21-32); Chloride 104 mmol/L (98-108); Estimated Glomerular Filt Rate > 60; Free T4 Free Thyroxine 1.08 ng/dL (0.76-1.46); Glucose 88 mg/dL (70-99); Iron 78 ug/dL (50-170); Osmolality Calculated 288 mOsm/kg (285-295); Potassium 3.9 mmol/L (3.5-5.1); Sodium 140 mmol/L (136-145); Thyroid Stimulating Hormone 2.05 uIU/mL (0.36-3.74); Total Protein 7.5 g/dL (6.4-8.2); Vitamin B12 403 pg/mL (193-986)
[2022-11-19 18:08] LABS: Vitamin D 25 Hydroxy 20 ng/mL (30-100)
== END 2022-11-16 09:45 | disposition home or self-care (01) ==
LOC: CHSLAB 09:46
PROVIDERS: PCP Nurse Practitioner Family; Visit Provider Nurse Practitioner Family
DX: E55.9 Vitamin D deficiency, unspecified (principal); E61.1 Iron deficiency; R53.83 Other fatigue
CPT/HCPCS: 36415; 80053; 82306; 82607; 83540; 84439; 84443; 85025

== ENCOUNTER 2023-02-16 12:48 | Outpatient (RCR) | payer BC, SELFPAY | END 2023-05-15 23:59 | disposition home or self-care (01) | LOC: ANHLAB 12:48 | PROVIDERS: PCP Nurse Practitioner Family; Visit Provider Obstetrics & Gynecology | DX: O20.0 Threatened abortion (principal); O36.0130 Maternal care for anti-D [Rh] antibodies, third trimester, not applicable or unspecified; Z3A.00 Weeks of gestation of pregnancy not specified | CPT/HCPCS: 36415; 84702; 85461; 86850; 86900; 86901 ==

== ENCOUNTER 2023-02-19 09:16 | Outpatient (RCR) | payer BC, SELFPAY ==
--- NOTE | 2023-02-19 10:13 | PTOPEVAL1 ---
Assessment and note entered by George Maynard Evaluation Information Assessment Status Evaluation Diagnosis paresthesia of skin Onset 01/03/23 Subjective Information Pt. reports she developed numbness in both hands around 01/03/23. She reports that the numbness was on/off initially, but is now constant. Pt. reports that intensity increases with dishes, or household activities. She reports that she cannot sense hot water on the front of the tips of her fingers. She reports she has no difficulty with sleeping. Pt. stays home with her children currently. She reports that she has no pain in the neck or arms. She was given a pain medication but stopped after a week due to lack of effectiveness. Pt. reports that she still forces herself to do all normal activities despite her symptoms. she reports her goal is to reduce the numbness in her hands. Reported Pain Level Pain Score 5: Self Report Assessment PT Clinical Summary Pt. is a 23 year old female who enters the clinic due to development of paresthesia in the right and left hand. She presents with indication of possible carpal tunnel with special testing. At this time pt. presents with impaired postural awareness as well as impaired senstation. Continued skilled PT is indicated in order to improve these areas to improve pt. comfort with IADL performance. Plan of Care Interventions Mechanical Traction,Therapeutic Activities, Therapeutic Exercise PT Services Indicated Yes Treatment Frequency and 2x/week x 4 visits Duration These treatments will address the objective and functional deficits as defined above. The patient will be advanced safely and appropriately in order for the patient to progress towards his/her prior level of function. Additional exercises will be introduced and as well as a comprehensive home exercise program upon discharge, if needed, ?to ensure carryover of functional gains achieved in the clinic. This treatment plan has been reviewed and agreement upon by the patient.
--- NOTE | 2023-03-02 08:53 | PTOPDC ---
Assessment and note entered by Mary Ann Loco DPT Evaluation Information Assessment Status Re-evaluation Diagnosis paresthesia of skin Onset 01/03/23 Subjective Information February reports no change in symptoms. She reports tingling continues to be worse when she is in contact with water. She reports she has been compliant with HEP. Reported Pain Level Pain Score 6: Self Report Assessment PT Clinical Summary Patient has been seen for 4 visits in skilled PT. Patient continues to demonstrate numbness in B hands with no change in symptoms. She reports she has been compliant with HEP. She was educated on follow up with MD due to persistent symptoms and will be discharge at this time. Plan of Care PT Services Indicated No
== END 2023-03-02 16:28 | disposition home or self-care (01) ==
LOC: CHSPT 09:16
PROVIDERS: PCP Nurse Practitioner Family; Visit Provider Nurse Practitioner Family
DX: R20.2 Paresthesia of skin (principal)
CPT/HCPCS: 97012; 97110; 97140; 97161

== ENCOUNTER 2023-02-23 13:11 | Outpatient (RCR) | payer BC, SELFPAY | END 2023-05-24 23:59 | disposition home or self-care (01) | LOC: ANHLAB 13:11 | PROVIDERS: PCP Nurse Practitioner Family; Visit Provider Advanced Practice Midwife | DX: O03.9 Complete or unspecified spontaneous abortion without complication (principal) | CPT/HCPCS: 36415; 84702 ==

== ENCOUNTER 2023-02-27 12:05 | Outpatient (CLI) | payer BC, SELFPAY | END 2023-02-27 12:06 | disposition home or self-care (01) | LOC: ANHLAB 12:07 | PROVIDERS: PCP Nurse Practitioner Family; Visit Provider Advanced Practice Midwife | DX: O20.0 Threatened abortion (principal) | CPT/HCPCS: 36415; 84702 ==

== ENCOUNTER 2023-03-05 00:24 | Day surgery (SDC) | payer BC, SELFPAY ==
[2023-03-02 15:17] VITALS: BMI 24.2
--- NOTE | 2023-03-02 15:20 | PC.NURSE ---
Report to the Outpatient Waiting Room, entrance under the green pavilion located off [facility], at time 1200 on date 03/05/23. Planned Procedure Time: 1400. Time changes happen often and if your time is changed the preop area will call you the afternoon before. - You and your visitor will be asked to self-screen and do not enter if you have any COVID symptoms. - A mask is optional within the hospital at this time. Patients may have clear liquids (water, carbonated beverages, clear teas, apple juice) until 3 hours prior to surgery with a maximum of 20 ounces. - No food from midnight until time of surgery Take the following medications with a SIP of water the morning of surgery: N/A DO NOT STOP ANY OF YOUR OTHER PRESCRIPTION MEDICATIONS PRIOR TO SURGERY EXCEPT THE FOLLOWING Medications to discontinue per physician: N/A Date to take last dose: N/A Please no make-up, nail syriac, hairspray, perfume, deodorant, or body powder the day of surgery. No jewelry (including any body piercings) or valuables the day of surgery, leave them at home. Please take a shower or bath the night before, or the morning of, surgery with an antibacterial soap. Wear comfortable, loose fitting clothing. - Jewelry must be removed prior to entering the operating room. Rings and piercings that are not removed may be cut off. - The hospital will not accept responsibility for valuables. - Please leave all valuables, including medications, at home the day of surgery. If you are going home after surgery, a licensed driver guard must drive you home. - NO public transportation without another adult if you receive anesthesia. - We recommend that an adult stay with you for 24 hours following discharge. - We also recommend that you do not drive, make important decision, drink alcoholic beverages, or take any drugs that were not prescribed by your health care provider for at least 24 hours after your discharge time. Follow any additional instructions given to you from your surgeon. If you or anyone in your household have experienced Covid symptoms in the past week, please notify your surgeon or the nurse liaison at the phone number below for possible testing. Telephone instructions given to PT - ESTUARDO THOMPSON and asked if any additional questions and then verbalized understanding. Patient advised to call surgeon office or pre surgery nurse liaison [phone] if any additional questions.
--- NOTE | 2023-03-05 09:04 | P.PNAN_ITS ---
Anes - Initial Pre Proc Eval Procedure: Operation Date: 03/05/23 14:00 Proposed Procedures p Suction Dilation and Curettage - Surekha Larson MD Date/Time: 03/05/23 09:04 Surgeon: Surekha Larson MD Pre Op Diagnosis: Missed Ab Patient Data Age: 23 Gender: F Height: 1.68 m Weight: 68.05 kg Allergies Allergy/AdvReac Type Severity Reaction Status Date / Time No Known Allergies Allergy Verified 03/05/23 12:13 Home Medications Medication Instructions Recorded Confirmed Type cholecalciferol (vitamin D3) 1,250 1,250 mcg PO WEEKLY #8 caps 11/23/22 03/02/23 Rx mcg (50,000 unit) capsule Patient hx anesthesia problems: none Family hx anesthesia problems: none Results Review: All pre-operative results and documents have been reviewed as part of the pre- operative evaluation. [facility] Past Medical History Medical History (Updated 03/05/23 @ 12:55 by David Melara DO) Musculoskeletal pain (normal spontaneous vaginal delivery) Pain of round ligament complicating , antepartum Family History Family History Father Malignant neoplasm of prostate Grandparent Family history of malignant neoplasm of brain Malignant neoplasm of prostate Social History Social History Smoking status: Never smoker Alcohol intake: current Alcohol use details: RARE WHEN NOT Substance use: never Substance use type: does not use Lack of Transportation: No Lack of Food: Never True Current Housing: I Have Housing Concerned About Future Housing: No Difficulty Paying Gas/Electric Bills: No Difficulty Paying for Meds: No Currently Unemployed: No Education: High School Diploma/GED Difficulty w/ Childcare or Family Care: No Living arrangements: with family Spiritual care concerns: No Anes - Eval Final PreProcedure Day of Procedure 03/05/23 09:04 Patient weight: normal Heart: regular rate and rhythm Lungs: clear to auscultation and normal air movement Airway: Mallampati scale class II Neurological: alert and oriented Last oral intake: >/= 8 hours ASA classification: I Emergent: no Anesthetic plan: proceed Anesthesia type and monitoring: general GIVS and standard monitoring Results Review: All pre-operative results and documents have been reviewed as part of the pre- operative evaluation. Informed Consent: The patient's anesthetic plan and its attendant risks and benefits were discussed with the patient/family/POA. Questions were solicited and answers provided to the satisfaction of the patient/family/POA.
[2023-03-05 12:07] VITALS: BP 141/90; PULSE 91; RESP 20; TEMP 36.3; O2SAT 100
[2023-03-05] MEDS: ACETAMINOPHEN 500 MG TABLET 1000 MG PO (12:15)
[2023-03-05] MEDS: LACTATED RINGERS 1,000 ML 30 ML IV CONT (12:35)
[2023-03-05] MEDS: DOXYCYCLINE 100 MG/NS 100 ML 100 MG/100 ML BAG IVPB (12:55)
--- NOTE | 2023-03-05 14:29 | PM.IMHP ---
H&P: HPI History of Present Illness Date/Time: 03/05/23 14:29 Chief Complaint: incomplete ab Narrative: Cathy is a 23yo at 8w by dates with bleeding for 2+ weeks. hcg most recently went from 712 to 492. had gone up before that. US showed GS with YS, no FP. Her dates were very certain. Bleeding was heavy at first and now for 10 days has been light. this is third miscarriage and would like cytogenetics. O pos. Review of Systems Review of Systems: All systems reviewed & are unremarkable except as noted in HPI and below PMFSH Past Medical History Medical History (Updated 03/05/23 @ 14:32 by Surekha Larson MD) Musculoskeletal pain (normal spontaneous vaginal delivery) Pain of round ligament complicating , antepartum Family History Family History Father Malignant neoplasm of prostate Grandparent Family history of malignant neoplasm of brain Malignant neoplasm of prostate Social History Social History Smoking status: Never smoker Alcohol intake: current Alcohol use details: RARE WHEN NOT Substance use: never Substance use type: does not use Lack of Transportation: No Lack of Food: Never True Current Housing: I Have Housing Concerned About Future Housing: No Difficulty Paying Gas/Electric Bills: No Difficulty Paying for Meds: No Currently Unemployed: No Education: High School Diploma/GED Difficulty w/ Childcare or Family Care: No Living arrangements: with family Spiritual care concerns: No Meds Home Medications and Allergies Home Medications Medication Instructions Recorded Confirmed Type cholecalciferol (vitamin D3) 1,250 1,250 mcg PO WEEKLY #8 caps 11/23/22 03/02/23 Rx mcg (50,000 unit) capsule Allergies Allergy/AdvReac Type Severity Reaction Status Date / Time No Known Allergies Allergy Verified 03/05/23 12:13 Vital Signs Vital Signs - 24 hr 03/05/23 12:07 Temperature 97.3 F L Pulse Rate 91 Respiratory Rate 20 Blood Pressure 141/90 H Pulse Oximetry 100 Oxygen Delivery Room Air Exam Const: General: no acute distress Resp: Effort & Inspection: normal respiratory effort Auscultation: clear to auscultation bilaterally Cardio: Rate: regular rate Rhythm: regular rhythm GI: GI Palp: Yes Soft to palpation Extrem: General: normal to inspection Assessment and Plan Assessment and plan (1) Incomplete : Code(s): O03.4 - Incomplete spontaneous without complication Status: Acute (2) History of recurrent miscarriages: Code(s): 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
--- NOTE | 2023-03-05 14:34 | WPDHPUPDATE1 ---
History and Physical Update Update Date/Time: 03/05/23 14:34 History and Physical has been reviewed, including an updated exam of the patient. There are NO changes in the patient's condition. Risks, benefits, and alternatives have been discussed and questions answered. Patient agrees to proceed with procedure.
[2023-03-05] MEDS: BUPIVACAINE/EPINEPHRINE 0.25% 10 ML VIAL INFILTRATE (14:49)
--- NOTE | 2023-03-05 15:01 | W.PM.PROC2 ---
Procedure Note - Detailed Date of Procedure 03/05/23 Pre-op Diagnosis Incomplete Ab Post-op Diagnosis Same Procedure Performed suction D and C Surgeon Surekha Larson MD Anesthesia MAC Indications decreasing hcgs in setting of bleeding, no pole, and dates off by 2+ weeks Findings moderate products of conception obtained Description of Procedure The patient was taken to the OR and placed in supine position in dorsal lithotomy. She received MAC anesthesia and doxycycline. She was prepped and draped in normal fashion. A speculum was placed and the cervix was grasped with a single tooth tenaculum. A paracervical block was placed with 10cc 0.25% marcaine with epinephrine. The cervix was sequentially dilated to 8 ruiz. The suction was tested and then the suction catheter was inserted into the uterine cavity. Several passes were made until no further products of conception were obtained. The tenaculum was removed and hemostasis was obtained with pressure and monsel's solution. The speculum was removed. The patient tolerated the procedure well and was taken to the recovery room in stable condition. Estimated Blood Loss 10 Drains No Packing No Pathology Yes (cytogenetics) Complications No immediate complications Condition Stable Disposition Same day
[2023-03-05 15:02] VITALS: BP 114/75; PULSE 99; RESP 14; O2SAT 100
--- NOTE | 2023-03-05 15:13 | SUR.PHASEII ---
Patient is O+ blood type. No Rhogam needed.
[2023-03-05 15:30] VITALS: BP 126/88; PULSE 85
[2023-03-05 15:50] VITALS: BP 128/78; PULSE 74
== END 2023-03-05 16:02 | disposition home or self-care (01) ==
PROVIDERS: PCP Nurse Practitioner Family; Visit Provider Obstetrics & Gynecology
PROC: (CPT 59812; principal; 2023-03-05 14:00)
DX: O03.4 Incomplete spontaneous abortion without complication (principal); N96 Recurrent pregnancy loss
CPT/HCPCS: 59812; 88305; A9270; J2250; J2704; J3010; J7120

== ENCOUNTER 2023-03-20 09:28 | Outpatient (CLI) | payer BC, SELFPAY ==
--- NOTE | ~2023-03-20 | XR_ITS ---
Cervical Spine: AP, lateral, open-mouth views Clinical History: Pain Findings: The normal lordotic curve is maintained. The vertebral bodies and posterior elements appea r intact. The intervertebral disc spaces are well maintained. Pre-vertebral soft tissues are unremar kable. Impression: No significant abnormality is seen. Reviewed, dictated and finalized at [facility]. Impression: No significant abnormality is seen.
--- NOTE | ~2023-03-20 | XR_ITS ---
AP views of the bilateral clavicles CLINICAL HISTORY: Bilateral direction he paresthesias FINDINGS: No fracture or dislocation seen. AC joint alignment is unremarkable bilaterally. Soft tissu es are unremarkable. IMPRESSION: Unremarkable exam. Reviewed, dictated and finalized at location M. IMPRESSION: Unremarkable exam.
== END 2023-03-20 09:29 | disposition home or self-care (01) ==
LOC: CHSIMG 09:30
PROVIDERS: PCP Nurse Practitioner Family; Visit Provider Nurse Practitioner Family
DX: R20.2 Paresthesia of skin (principal)
CPT/HCPCS: 72040; 73000

== ENCOUNTER 2023-04-11 09:48 | Outpatient (CLI) | payer BC, SELFPAY ==
--- NOTE | 2023-04-11 11:00 | NEURO_ITS ---
Impression: Patient reports a history of numbness in all finger tips. # Normal nerve conduction study. # Normal needle/EMG exam. # Clinical correlation recommended. Nerve Conduction Studies Anti Sensory Summary Table Stim Site NR Peak (ms) P-T Amp (?V) Site1 Site2 Delta-P (ms) Dist (cm) Ricco (m/s) Left Median Anti Sensory (2-3nd Digit) Wrist 3.0 92.9 Wrist 2-3nd Digit 3.0 14.0 47 Wrist 3.1 90.6 Wrist 2-3nd Digit 3.0 14.0 47 Right Median Anti Sensory (2-3nd Digit) Wrist 3.0 63.2 Wrist 2-3nd Digit 3.0 14.0 47 Wrist 3.1 44.8 Wrist 2-3nd Digit 3.0 14.0 47 Left Radial Anti Sensory (Base 1st Digit) Wrist 1.8 55.3 Wrist Base 1st Digit 1.8 0.0 Right Radial Anti Sensory (Base 1st Digit) Wrist 2.0 63.9 Wrist Base 1st Digit 2.0 0.0 Left Ulnar Anti Sensory (5th Digit) Wrist 2.9 73.3 Wrist 5th Digit 2.9 14.0 48 Right Ulnar Anti Sensory (5th Digit) Wrist 2.8 54.1 Wrist 5th Digit 2.8 14.0 50 Motor Summary Table Stim Site NR Onset (ms) O-P Amp (mV) Site1 Site2 Delta-0 (ms) Dist (cm) Ricco (m/s) Left Median Motor (Abd Poll Brev) Wrist 2.9 9.7 Elbow Wrist 3.9 24.0 62 Elbow 6.8 6.7 Right Median Motor (Abd Poll Brev) Wrist 2.7 9.4 Elbow Wrist 3.9 24.0 62 Elbow 6.6 8.1 Left Ulnar Motor (Abd Dig Minimi) Wrist 2.7 6.5 A Elbow Wrist 5.2 32.0 62 A Elbow 7.9 5.9 B Elbow Wrist 3.5 22.0 63 B Elbow 6.2 6.7 Right Ulnar Motor (Abd Dig Minimi) Wrist 2.6 7.4 A Elbow Wrist 4.8 30.0 62 A Elbow 7.4 6.7 B Elbow Wrist 3.0 20.0 67 B Elbow 5.6 7.3 F Wave Studies NR F-Lat (ms) L-R F-Lat (ms) Left Median (Mrkrs) (Abd Poll Brev) 26.79 0.78 Right Median (Mrkrs) (Abd Poll Brev) 26.01 0.78 Left Ulnar (Mrkrs) (Abd Dig Min) 27.34 0.58 Right Ulnar (Mrkrs) (Abd Dig Min) 26.76 0.58 EMG Side Muscle Nerve Root Ins Act Fibs Amp Dur Recrt Comment Right 1stDorInt Ulnar C8-T1 Nml Nml Nml Nml Nml Right Ext Indicis Radial (Post Int) C7-8 Nml Nml Nml Nml Nml Right Ext Digitorum Radial (Post Int) C7-8 Nml Nml Nml Nml Nml Right BrachioRad Radial C5-6 Nml Nml Nml Nml Nml Right PronatorTeres Median C6-7 Nml Nml Nml Nml Nml Right Abd Poll Brev Median C8-T1 Nml Nml Nml Nml Nml Left 1stDorInt Ulnar C8-T1 Nml Nml Nml Nml Nml Left Ext Indicis Radial (Post Int) C7-8 Nml Nml Nml Nml Nml Left Ext Digitorum Radial (Post Int) C7-8 Nml Nml Nml Nml Nml Left BrachioRad Radial C5-6 Nml Nml Nml Nml Nml Left PronatorTeres Median C6-7 Nml Nml Nml Nml Nml Left Abd Poll Brev Median C8-T1 Nml Nml Nml Nml Nml MTDD
== END 2023-04-11 09:49 | disposition home or self-care (01) ==
PROVIDERS: PCP Nurse Practitioner Family; Visit Provider Nurse Practitioner Family
DX: R20.0 Anesthesia of skin (principal)
CPT/HCPCS: 95886; 95911

== ENCOUNTER 2023-09-24 09:16 | Outpatient (CLI) | payer BC, SELFPAY ==
[2023-09-24 10:10] LABS: Strep Group A RT-PCR NOT DETECTED (Negative)
== END 2023-09-24 09:17 | disposition home or self-care (01) ==
LOC: CHSLAB 09:18
PROVIDERS: PCP Nurse Practitioner Family; Visit Provider Family Medicine
DX: J02.9 Acute pharyngitis, unspecified (principal)
CPT/HCPCS: 87651

== ENCOUNTER 2024-09-05 13:13 | Observation (INO) | payer OTHER, SELFPAY ==
[2024-09-05] VITALS (8 sets, daily range): BP systolic 123–141; BP diastolic 74–94; PULSE 87–93; BMI 28.6
[2024-09-05] MEDS: ACETAMINOPHEN 500 MG TABLET 1000 MG PO (13:55)
--- NOTE | 2024-09-05 15:19 | PC.NURSE ---
Dr gomez called report given. ok to discharge. to return if conditions worsens
--- NOTE | 2024-09-08 12:55 | PM.OBTRLD ---
OB - Triage/Final Diagnosis Visit Information Comments/Additional reasons for admission: I have assessed the risk for this patient, Cathy Bautista, and determined that she would benefit from observation care. Final Diagnosis (1) Abdominal pain affecting : Code(s): O26.899 - Other specified related conditions, unspecified trimester; R10.9 - Unspecified abdominal pain Status: Acute
== END 2024-09-05 15:30 | disposition home or self-care (01) ==
PROVIDERS: Admitting Provider Obstetrics & Gynecology; PCP Nurse Practitioner Family; Visit Provider Obstetrics & Gynecology
DX: O26.893 Other specified pregnancy related conditions, third trimester (principal); R10.9 Unspecified abdominal pain; Z3A.31 31 weeks gestation of pregnancy
CPT/HCPCS: A9270; G0378; G0379

== ENCOUNTER 2024-10-02 14:13 | Outpatient (CLI) | payer OTHER, SELFPAY ==
--- NOTE | ~2024-10-02 | US_ITS ---
EXAMINATION: US venous doppler [facility] DATE: 10/02/2024 14:37 INDICATION: Left lower limb pain and swelling TECHNIQUE: Grayscale ultrasound images without and with compression and Doppler ultrasound images of the left lower extremity veins were obtained. COMPARISON: None. FINDINGS: The visualized portions of left common femoral vein, profunda (deep) femoral vein, femoral vein, popl iteal vein, peroneal veins, posterior tibial veins, soleal vein, gastrocnemius vein and greater saphe nous vein outflow are patent. IMPRESSION: 1. No deep venous thrombosis in the left lower limb. Reviewed, dictated and finalized at location B. DOFFER
== END 2024-10-02 14:14 | disposition home or self-care (01) ==
LOC: MICIMG 14:13
PROVIDERS: PCP Obstetrics & Gynecology; Visit Provider Obstetrics & Gynecology
DX: M79.672 Pain in left foot (principal)
CPT/HCPCS: 93971

== ENCOUNTER 2024-10-07 10:55 | Inpatient (IN) | payer OTHER, SELFPAY ==
[2024-10-07] VITALS (31 sets, daily range): BP systolic 134–162; BP diastolic 83–109; PULSE 88–110; RESP 16–20; TEMP 36.4–37; BMI 29.5
[2024-10-07 11:40] LABS: Basophils Percent Auto 0.2 % (0.2-1.2); Eosinophils Absolute Auto 0.2 K/mm3 (0-0.3); Eosinophils Percent Auto 1.6 % (0-4.4); Hematocrit 33.2 % (37.0-47.0); Immature Granulocyte Absolute 0.05 K/mm3 (0.00-0.031); Immature Granulocyte Percent A 0.5 % (0-0.5); Lymphocytes Absolute Auto 0.95 K/mm3 (0.9-3.2); Lymphocytes Percent Auto 10.2 % (18.3-44.2); Mean Corpuscular HGB Conc 33.1 g/dl (32-36); Mean Corpuscular Hemoglobin 31.2 pg (26-34); Mean Corpuscular Volume 94.1 fl (80-100); Mean Platelet Volume 11.5 fl (7.4-10.4); Monocytes Absolute Auto 0.7 K/mm3 (0.1-0.6); Monocytes Percent Auto 7.3 % (2.6-8.5); Neutrophils Absolute Auto 7.4 K/mm3 (1.3-6.7); Neutrophils Percent Auto 80.2 % (45.5-73.1); Platelet Count Result 191 k/mm3 (150-375); Red Blood Count 3.53 M/mm3 (4.2-5.4); Red Cell Distribution Width 15.1 % (11.5-14.5); White Blood Count 9.3 K/mm3 (4.5-10.0)
[2024-10-07] MEDS: LACTATED RINGERS 1,000 ML 75 ML IV CONT (11:46)
[2024-10-07] MEDS: MAGNESIUM SULF 4 GM/WATER100ML 4 GM/100 ML BAG IVPB (11:47)
[2024-10-07] MEDS: miSOPROStol 25 MCG TABLET 50 MCG BUCCAL (11:49)
--- NOTE | 2024-10-07 11:54 | LDADM ---
This patient, Cathy Bautista, was admitted to Labor/Delivery/Recovery 108 on 10/07/24 at 10:55. Plans for labor, pain management and were discussed with patient. Patient/family oriented to hospital policies and general routines including ID bracelet, bed and alarms, visiting hours, pain management, procedures, bathroom and other care routines, personal items, smoking policy, room service/diet and guest tray routines, security routines, and visiting hours. Patient/Family are encouraged to report perceived risks to care and to ask questions if they do not understand what they are told or what they should do. See OBIX for further documentation.
[2024-10-07 12:07] LABS: Alanine Aminotransferase 12 U/L (6-35); Albumin Level 3.6 g/dL (3.5-5.1); Alkaline Phosphatase 207 U/L (38-126); Anion Gap 6 mmol/L (4-12); Aspartate Amino Transferase 18 U/L (14-36); Bilirubin,Total 0.4 mg/dL (0.2-1.3); Blood Urea Nitrogen 7 mg/dL (7-17); Calcium 9.1 mg/dL (8.4-10.2); Carbon Dioxide 18 mmol/L (22-30); Chloride 112 mmol/L (98-107); Estimated CRCL calculation 132 ml/min; Estimated Glomerular Filt Rate > 60; Glucose 86 mg/dL (65-110); Potassium 3.7 mmol/L (3.4-5.0); Sodium 136 mmol/L (137-145); Uric Acid 6.2 mg/dL (2.5-7.5)
[2024-10-07] MEDS: MAGNESIUM SULF 20GM/WATER500ML 500 ML 50 MG IV CONT ×2 (12:25→22:33)
[2024-10-07 12:31] LABS: HIV 1/2 Ab P24 Ag Result Negative (Negative)
[2024-10-07 12:55] LABS: Rapid Plasma Reagin Non-Reactive (NonReactive)
[2024-10-07] MEDS: OXYTOCIN 30 UNITS/NS 500 ML 30 UNITS/500 ML BAG IV CONT (16:21)
[2024-10-07] MEDS: AMPICILLIN 2 GM/NS 100 ML 2 GM/100 ML BAG IVPB (16:21)
--- NOTE | 2024-10-07 19:22 | WPDANESEPP ---
Anes - Eval Pre Procedure Procedure: labor epidural Date/Time: 10/07/24 19:22 Surgeon: patricia Preop Diagnosis: pain during labor Pre Op Diagnosis: Induction of Labor Patient Data Age: 24 Gender: F Height: 1.68 m Weight: 83 kg Last Vital Signs Temp 37.0 C 10/07/24 18:15 Pulse 102 H 10/07/24 19:00 Resp 18 10/07/24 11:47 BP 144/83 H 10/07/24 19:00 O2 Del Method Room Air 10/07/24 11:54 Allergies Allergy/AdvReac Type Severity Reaction Status Date / Time No Known Allergies Allergy Verified 10/06/24 13:26 Home Medications Medication Instructions Recorded Confirmed Type cholecalciferol (vitamin D3) 125 125 mcg PO DAILY 06/20/23 10/06/24 History mcg (5,000 unit) capsule aspirin 81 mg tablet 81 mg PO DAILY 09/05/24 10/06/24 History vits no.126-ferrous fum 1 tablet PO DAILY 09/05/24 10/06/24 History 28 mg iron-folic acid 800 mcg tablet (Classic ) ferrous sulfate 325 mg (65 mg 325 mg PO DAILY 10/06/24 10/06/24 History iron) tablet Laboratory Tests 10/07/24 11:30 WBC 9.3 K/mm3 (4.5-10.0) RBC 3.53 L M/mm3 (4.2-5.4) Hgb 11.0 L g/dL (12.0-15.0) Hct 33.2 L % (37.0-47.0) MCV 94.1 fl (80-100) MCH 31.2 pg (26-34) MCHC 33.1 g/dl (32-36) RDW 15.1 H % (11.5-14.5) Plt Count 191 k/mm3 (150-375) MPV 11.5 H fl (7.4-10.4) Immature Gran % (Auto) 0.5 % (0-0.5) Neut % (Auto) 80.2 H % (45.5-73.1) Lymph % (Auto) 10.2 L % (18.3-44.2) [place] % (Auto) 7.3 % (2.6-8.5) Eos % (Auto) 1.6 % (0-4.4) Baso % (Auto) 0.2 % (0.2-1.2) Lymph # (Auto) 0.95 K/mm3 (0.9-3.2) [place] # (Auto) 0.7 H K/mm3 (0.1-0.6) Eos # (Auto) 0.2 K/mm3 (0-0.3) Baso # (Auto) 0.0 K/mm3 (0.0-0.1) Abs Immat Gran (auto) 0.05 H K/mm3 (0.00-0.031) Absolute Neuts (auto) 7.4 H K/mm3 (1.3-6.7) Absolute Nucleated RBC 0.000 K/mm3 (0.0-0.012) Nucleated RBC % 0.0 % (0.0-0.2) Sodium 136 L mmol/L (137-145) Potassium 3.7 mmol/L (3.4-5.0) Chloride 112 H mmol/L (98-107) Carbon Dioxide 18 L mmol/L (22-30) Anion Gap 6 mmol/L (4-12) BUN 7 mg/dL (7-17) Creatinine 0.60 L mg/dL (0.7-1.0) Estim Creat Clear Calc 132 ml/min Estimated GFR > 60 (59 - ) Glucose 86 mg/dL (65-110) Uric Acid 6.2 mg/dL (2.5-7.5) Calcium 9.1 mg/dL (8.4-10.2) Total Bilirubin 0.4 mg/dL (0.2-1.3) AST 18 U/L (14-36) ALT 12 U/L (6-35) Alkaline Phosphatase 207 H U/L (38-126) Total Protein 7.0 g/dL (6.3-8.2) Albumin 3.6 g/dL (3.5-5.1) RPR Non-reactive (NonReactive) HIV 1&2 Ab/P24 Ag 4thGn Negative (Negative) Blood Type O Positive Antibody Screen Negative Patient hx anesthesia problems: none Family hx anesthesia problems: none Results Review: All pre-operative results and documents have been reviewed as part of the pre-operative evaluation. [facility] Past Medical History Medical History (Updated 10/07/24 @ 19:23 by Katia Wood CRNA) IUP (intrauterine ), incidental Musculoskeletal pain (normal spontaneous vaginal delivery) Pain of round ligament complicating , antepartum Family History Family History (Updated 10/06/24 @ 13:34 by Wilma Woody, HAIDER) Father Malignant neoplasm of prostate Grandparent Malignant neoplasm of prostate Family history of malignant neoplasm of brain Kidney failure Social History Social History Smoking status: Never smoker Smokeless tobacco user: chewing tobacco Second hand tobacco smoke exposure: No Alcohol intake: current Alcohol use details: RARE WHEN NOT Substance use: never Substance use type: does not use Do You Feel Safe in your Home?: Yes Lack of Transportation: No Lack of Food: Never True Current Housing: I Have Housing Concerned About Future Housing: No Difficulty Paying Gas/Electric Bills: No Difficulty Paying for Meds: No Currently Unemployed: No Education: High School Diploma/GED Difficulty w/ Childcare or Family Care: No Living arrangements: with family Spiritual care concerns: No Exam Day of Procedure 10/07/24 19:22
[2024-10-07] MEDS: AMPICILLIN 1 GM/NS 50 ML 1 GM/50 ML BAG IVPB (20:04)
[2024-10-08] VITALS (88 sets, daily range): BP systolic 94–168; BP diastolic 47–107; PULSE 28–138; RESP 16–20; TEMP 36.3–37.3; O2SAT 77–100
[2024-10-08] MEDS: AMPICILLIN 1 GM/NS 50 ML 1 GM/50 ML BAG IVPB
[2024-10-08] MEDS: ACETAMINOPHEN 500 MG TABLET 1000 MG PO (00:32)
--- NOTE | 2024-10-08 01:48 | P.PNOB_ITS ---
OB - PN: Subj Subjective Date/time seen: 10/08/24 01:48 Interval history: SVE 5/100/-1 AROM large amount of clear, odorless fluid, anticipate vaginal delivery OB - PN: Obj Data Labs 10/07/24 11:30 10/07/24 11:30 Labs: Laboratory Results - last 24 hr 10/07/24 11:30 WBC 9.3 RBC 3.53 L Hgb 11.0 L Hct 33.2 L MCV 94.1 MCH 31.2 MCHC 33.1 RDW 15.1 H Plt Count 191 MPV 11.5 H Immature Gran % (Auto) 0.5 Neut % (Auto) 80.2 H Lymph % (Auto) 10.2 L [place] % (Auto) 7.3 Eos % (Auto) 1.6 Baso % (Auto) 0.2 Lymph # (Auto) 0.95 [place] # (Auto) 0.7 H Eos # (Auto) 0.2 Baso # (Auto) 0.0 Abs Immat Gran (auto) 0.05 H Absolute Neuts (auto) 7.4 H Absolute Nucleated RBC 0.000 Nucleated RBC % 0.0 Sodium 136 L Potassium 3.7 Chloride 112 H Carbon Dioxide 18 L Anion Gap 6 BUN 7 Creatinine 0.60 L Estim Creat Clear Calc 132 Estimated GFR > 60 Glucose 86 Uric Acid 6.2 Calcium 9.1 Total Bilirubin 0.4 AST 18 ALT 12 Alkaline Phosphatase 207 H Total Protein 7.0 Albumin 3.6 RPR Non-reactive HIV 1&2 Ab/P24 Ag 4thGn Negative Blood Type O Positive Antibody Screen Negative OB - PN A/P Time Spent With Patient Time: Total time spent is greater than 50% in coordination of care (as documented) at patient's floor/unit and/or counseling patient:
--- NOTE | 2024-10-08 02:42 | P.PCNOB_ITS ---
OB - Vaginal Delivery Note Procedure Delivery date: 10/08/24 Events: Preeclampsia w severe features Induction method: AROM and Per Pitocin Protocol Delivery monitor: External FHT and External Uterine Route of delivery: Indication for instrumentation: other Episiotomy description: None Laceration Description: None Specimen: Yes Quantitative Blood Loss (ml): 100 Anesthesia type: Epidural Disposition: Floor Complications: No immediate complications [place] Baby Date of : 10/08/24 Time of : 02:34 Gestational Age by Date: 36 Infant gender: Female Weight (pounds): 6 Weight (ounces): 12 presentation: vertex position: Right Occiput Anterior Placenta delivery description: Spontaneous Cord Vessel Description: 3 Vessels and Delayed Cord Clamping (30 sec) score one minute: 7 score five minutes: 8 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
[2024-10-08] MEDS: LACTATED RINGERS 1,000 ML 75 ML IV CONT ×2 (02:47→17:14)
[2024-10-08] MEDS: OXYTOCIN 30 UNITS/NS 500 ML 30 UNITS/500 ML BAG 125 UNITS IV CONT (02:58)
--- NOTE | 2024-10-08 03:48 | PM.IMHP ---
H&P: HPI History of Present Illness Date/Time: 10/07/24 18:10 Chief Complaint: chronic hypertension with superimposed preeclampsia with severe features Narrative: Patient is a 24 year old at 36w3d who presents from the office for medical induction of labor for chronic hypertension with superimposed preeclampsia with severe features. She was seen in the office today and noted to have persistent severe range blood pressures. She denies headaches, vision changes, chest pain, dyspnea, RUQ pain or epigastric pain. She has a history of chronic HTN controlled without medications. She developed mild preeclampsia earlier in with newly elevated proteinuria, and today meets criteria for severe features by blood pressures. Her has been otherwise uncomplicated. Review of Systems Review of Systems: All systems reviewed & are unremarkable except as noted in HPI and below PMFSH Past Medical History Medical History IUP (intrauterine ), incidental Musculoskeletal pain (normal spontaneous vaginal delivery) Pain of round ligament complicating , antepartum Family History Family History Father Malignant neoplasm of prostate Grandparent Malignant neoplasm of prostate Family history of malignant neoplasm of brain Kidney failure Social History Social History Smoking status: Never smoker Smokeless tobacco user: chewing tobacco Second hand tobacco smoke exposure: No Alcohol intake: current Alcohol use details: RARE WHEN NOT Substance use: never Substance use type: does not use Do You Feel Safe in your Home?: Yes Lack of Transportation: No Lack of Food: Never True Current Housing: I Have Housing Concerned About Future Housing: No Difficulty Paying Gas/Electric Bills: No Difficulty Paying for Meds: No Currently Unemployed: No Education: High School Diploma/GED Difficulty w/ Childcare or Family Care: No Living arrangements: with family Spiritual care concerns: No Meds Home Medications and Allergies Home Medications Medication Instructions Recorded Confirmed Type cholecalciferol (vitamin D3) 125 125 mcg PO DAILY 06/20/23 10/06/24 History mcg (5,000 unit) capsule aspirin 81 mg tablet 81 mg PO DAILY 09/05/24 10/06/24 History vits no.126-ferrous fum 1 tablet PO DAILY 09/05/24 10/06/24 History 28 mg iron-folic acid 800 mcg tablet (Classic ) ferrous sulfate 325 mg (65 mg 325 mg PO DAILY 10/06/24 10/06/24 History iron) tablet Allergies Allergy/AdvReac Type Severity Reaction Status Date / Time No Known Allergies Allergy Verified 10/06/24 13:26 Vital Signs Vital Signs - 24 hr 10/07/24 11:54 10/07/24 11:47 10/07/24 11:29 Temperature 97.8 F Pulse Rate 91 Respiratory Rate 18 Blood Pressure 144/102 H Pulse Oximetry Oxygen Delivery Room Air 10/07/24 11:31 10/07/24 11:45 10/07/24 12:00 Temperature Pulse Rate 96 92 98 Respiratory Rate Blood Pressure 143/103 H 143/100 H 134/86 Pulse Oximetry Oxygen Delivery 10/07/24 12:31 10/07/24 13:00 10/07/24 13:30 Temperature Pulse Rate 88 98 91 Respiratory Rate Blood Pressure 148/89 H 145/97 H 149/98 H Pulse Oximetry Oxygen Delivery 10/07/24 14:00 10/07/24 14:30 10/07/24 15:00 Temperature Pulse Rate 93 100 92 Respiratory Rate Blood Pressure 148/93 H 146/99 H 153/98 H Pulse Oximetry Oxygen Delivery 10/07/24 15:30 10/07/24 16:30 10/07/24 16:02 Temperature 98.2 F Pulse Rate 98 96 Respiratory Rate Blood Pressure 154/94 H 149/99 H Pulse Oximetry Oxygen Delivery 10/07/24 17:00 10/07/24 17:30 10/07/24 18:00 Temperature Pulse Rate 103 H 106 H 102 H Respiratory Rate Blood Pressure 147/83 H 149/104 H 154/95 H Pulse Oximetry Oxygen Delivery 10/07/24 18:15 10/07/24 18:30 10/07/24 19:00 Temperature 98.6 F Pulse Rate 104 H 102 H Respiratory Rate Blood Pressure 147/91 H 144/83 H Pulse Oximetry Oxygen Delivery 10/07/24 19:30 10/07/24 20:00 10/07/24 20:02 Temperature 97.5 F L Pulse Rate 95 107 H 110 H Respiratory Rate Blood Pressure 148/93 H 150/104 H 147/97 H Pulse Oximetry Oxygen Delivery 10/07/24 20:30 10/07/24 21:00 10/07/24 21:30 Temperature Pulse Rate 99 98 109 H Respiratory Rate Blood Pressure 137/89 146/102 H 155/103 H Pulse Oximetry Oxygen Delivery 10/07/24 22:00 10/07/24 22:30 10/07/24 23:00 Temperature 97.9 F Pulse Rate 105 H 106 H 99 Respiratory Rate Blood Pressure 154/105 H 162/109 H 141/85 H Pulse Oximetry Oxygen Delivery 10/07/24 23:30 10/08/24 00:00 10/08/24 00:30 Temperature 98 F Pulse Rate 103 H 105 H 105 H Respiratory Rate Blood Pressure 156/96 H 150/103 H 160/107 H Pulse Oximetry Oxygen Delivery 10/08/24 00:51 10/08/24 00:52 10/08/24 00:53 Temperature Pulse Rate 106 H 103 H Respiratory Rate Blood Pressure 154/95 H 148/103 H Pulse Oximetry 98 Oxygen Delivery 10/08/24 00:55 10/08/24 00:56 10/08/24 00:57 Temperature Pulse Rate 107 H 104 H Respiratory Rate Blood Pressure 144/99 H 149/97 H Pulse Oximetry 100 Oxygen Delivery 10/08/24 01:00 10/08/24 01:01 10/08/24 01:02 Temperature Pulse Rate 121 H 114 H Respiratory Rate Blood Pressure 160/86 H 146/79 H Pulse Oximetry 96 Oxygen Delivery 10/08/24 01:05 10/08/24 01:06 10/08/24 01:07 Temperature Pulse Rate 113 H 108 H Respiratory Rate Blood Pressure 128/77 128/72 Pulse Oximetry 97 Oxygen Delivery 10/08/24 01:10 10/08/24 01:11 10/08/24 01:13 Temperature Pulse Rate 134 H 130 H Respiratory Rate Blood Pressure 131/77 99/69 L Pulse Oximetry 95 Oxygen Delivery 10/08/24 01:15 10/08/24 01:16 10/08/24 01:17 Temperature Pulse Rate 119 H 112 H Respiratory Rate Blood Pressure 133/75 135/77 Pulse Oximetry 93 Oxygen Delivery 10/08/24 01:20 10/08/24 01:21 10/08/24 01:22 Temperature Pulse Rate 105 H 106 H Respiratory Rate Blood Pressure 137/83 139/77 Pulse Oximetry 92 Oxygen Delivery 10/08/24 01:25 10/08/24 01:26 10/08/24 01:27 Temperature Pulse Rate 103 H 106 H Respiratory Rate Blood Pressure 132/80 132/78 Pulse Oximetry 93 Oxygen Delivery 10/08/24 01:30 10/08/24 01:31 10/08/24 01:32 Temperature Pulse Rate 100 100 Respiratory Rate Blood Pressure 132/78 129/82 Pulse Oximetry 93 Oxygen Delivery 10/08/24 01:35 10/08/24 01:36 10/08/24 01:37 Temperature Pulse Rate 98 104 H Respiratory Rate Blood Pressure 135/80 129/83 Pulse Oximetry 93 Oxygen Delivery 10/08/24 01:40 10/08/24 01:41 10/08/24 01:43 Temperature Pulse Rate 101 H 97 Respiratory Rate Blood Pressure 123/84 124/80 Pulse Oximetry 94 Oxygen Delivery 10/08/24 01:45 10/08/24 01:46 10/08/24 01:47 Temperature Pulse Rate 95 98 Respiratory Rate Blood Pressure 118/77 117/80 Pulse Oximetry 92 Oxygen Delivery 10/08/24 01:50 10/08/24 01:51 10/08/24 01:52 Temperature Pulse Rate 102 H 109 H Respiratory Rate Blood Pressure 102/81 122/85 Pulse Oximetry 97 Oxygen Delivery 10/08/24 01:55 10/08/24 01:56 10/08/24 01:57 Temperature Pulse Rate 106 H 104 H Respiratory Rate Blood Pressure 134/83 133/82 Pulse Oximetry 94 Oxygen Delivery 10/08/24 02:00 10/08/24 02:01 10/08/24 02:02 Temperature Pulse Rate 105 H 104 H Respiratory Rate Blood Pressure 141/74 H 114/91 H Pulse Oximetry 96 Oxygen Delivery 10/08/24 02:05 10/08/24 02:06 10/08/24 02:07 Temperature Pulse Rate 102 H 100 Respiratory Rate Blood Pressure 130/66 124/83 Pulse Oximetry 90 Oxygen Delivery 10/08/24 02:10 10/08/24 02:11 10/08/24 02:12 Temperature Pulse Rate 108 H 107 H Respiratory Rate Blood Pressure 134/85 129/71 Pulse Oximetry 99 Oxygen Delivery 10/08/24 02:15 10/08/24 02:16 10/08/24 02:16 Temperature Pulse Rate 107 H Respiratory Rate Blood Pressure 129/68 Pulse Oximetry 80 L 77 L 94 Oxygen Delivery 10/08/24 02:18 10/08/24 02:19 10/08/24 02:20 Temperature Pulse Rate 112 H 109 H Respiratory Rate Blood Pressure 105/66 95/47 L Pulse Oximetry 94 Oxygen Delivery 10/08/24 02:22 10/08/24 02:24 10/08/24 02:25 Temperature Pulse Rate 134 H 121 H Respiratory Rate Blood Pressure 94/68 L 96/61 L Pulse Oximetry 100 Oxygen Delivery 10/08/24 02:27 10/08/24 02:29 10/08/24 02:30 Temperature Pulse Rate 118 H 120 H Respiratory Rate Blood Pressure 112/67 116/72 Pulse Oximetry 97 Oxygen Delivery 10/08/24 02:33 10/08/24 02:35 10/08/24 03:06 Temperature Pulse Rate 94 Respiratory Rate Blood Pressure 131/86 Pulse Oximetry 90 100 Oxygen Delivery 10/08/24 03:15 10/08/24 03:30 10/08/24 03:45 Temperature Pulse Rate 92 83 93 Respiratory Rate Blood Pressure 131/84 126/79 128/84 Pulse Oximetry Oxygen Delivery 10/07/24 20:00 10/07/24 23:59 10/08/24 03:02 Temperature 97.5 F L 98.0 F 98.1 F Pulse Rate 110 H 110 H Respiratory Rate 20 16 Blood Pressure 147/97 H Pulse Oximetry Oxygen Delivery Exam Const: General: comfortable and no acute distress HENMT: Mouth: Yes moist mucous membranes Resp: Effort & Inspection: normal respiratory effort Cardio: Rate: regular rate Skin: General skin exam: normal color Extrem: General: normal to inspection Psych: Mental Status: mental status grossly normal H&P: Results Labs Labs: Short CBC 10/07/24 Range/Units 11:30 WBC 9.3 (4.5-10.0) K/mm3 Hgb 11.0 L (12.0-15.0) g/dL Hct 33.2 L (37.0-47.0) % Plt Count 191 (150-375) k/mm3 BMP 10/07/24 11:30 Sodium 136 L Potassium 3.7 Chloride 112 H Carbon Dioxide 18 L BUN 7 Creatinine 0.60 L Glucose 86 Calcium 9.1 Liver Function 10/07/24 Range/Units 11:30 Total Bilirubin 0.4 (0.2-1.3) mg/dL AST 18 (14-36) U/L ALT 12 (6-35) U/L Alkaline Phosphatase 207 H (38-126) U/L Albumin 3.6 (3.5-5.1) g/dL Assessment and Plan Assessment and plan (1) Chronic hypertension with superimposed preeclampsia: Code(s): O11.9 - Pre-existing hypertension with pre-eclampsia, unspecified trimester Status: Acute Assessment and Plan: - chronic hypertension with superimposed preeclampsia with severe features - severe by: BP in office - asymptomatic - BP 140s-150s/90s-100s since admission - labs wnl - maintenance meds: none - acute meds: none - will start MgSO4 for seizure prophylaxis and continue x24 hours MIL: cytotec per protocol
[2024-10-08] MEDS: WITCH HAZEL 40 PADS 1 PAD TOPICAL (05:34)
[2024-10-08] MEDS: BENZOCAINE 20% AER SPR (*SP) 56 GM CAN 1 SPRAY TOPICAL (05:34)
--- NOTE | 2024-10-08 06:27 | OBPPTRN ---
Patient transferred to post room #287 via wheelchair. Support person present. Oriented to unit, room, information board, admission packet and security measures. Patient verbalizes understanding.
--- NOTE | 2024-10-08 06:45 | PC.NURSE ---
bedside commode placed at the side of the bed, discussed safe activity measures due to magnesium infusion. pt verbalized understanding. patient will call out when she needs to used the bathroom so assistance can be provided.
--- NOTE | 2024-10-08 06:56 | OBPPTRN ---
Patient transferred to post room #287 via wheel chair. Support person present. Oriented to unit, room, information board, admission packet and security measures. Patient verbalizes understanding.
--- NOTE | 2024-10-08 08:00 | PC.NURSE ---
Breast pump provided due to [ on CPAP in level 2 nursery]. Instructions given on cleaning, care, usage, that there should be no pain, pumping schedule for milk production, collection, and storage of human milk. Patient was assessed for correct placement, flange size (20mm measure, recommend 24mm flange), to pump for comfort and nipple stretching/stimulation for adequate milk production every 3 hours (8 times in 24 hours) 1-2 times at night. Parents are encouraged to record the pumping schedule on the pumping log.?Mother voiced understanding of the education shared along with mom/baby guide and the breast milk storage and pump cleaning handouts for additional resource information. Reported to the Primary RN.
[2024-10-08] MEDS: MAGNESIUM SULF 20GM/WATER500ML 500 ML 50 MG IV CONT ×2 (08:32→18:23)
--- NOTE | 2024-10-08 09:30 | PC.NURSE ---
Patient called out with breast milk for the fridge. She has 15ml collected. Reviewed cleaning of the pump parts and her support person will wash them since she is on bedrest. She says baby is being transferred so we discussed sending the milk over when someone goes to see baby. Lanolin given. Reported to primary RN.
[2024-10-08] MEDS: MULTIVIT/MIN/PREN/FOL AC/IRON TABLET 1 TAB PO (09:47)
[2024-10-08] MEDS: NIFEdipine 30 MG TAB.ER.24 PO (11:08)
--- NOTE | 2024-10-08 12:46 | PC.NURSE ---
Went in to check on pt, she is currently pumping. Told her that after she is done to lay down and get some sleep. Her BP is elevated, she denies a headache, blurred vision or epigastric pain. She is exhausted but denies pain. She is upset that baby was transferred to [facility]. Will recheck BP in about 30 min
[2024-10-08] MEDS: IBUPROFEN 600 MG TABLET PO ×2 (14:22→20:20)
[2024-10-08] MEDS: LABETALOL HCL INJ 100 MG/20 ML VIAL 20 MG IV PUSH (14:44)
[2024-10-08] MEDS: LABETALOL HCL 100 MG TABLET 200 MG PO (16:16)
[2024-10-08] MEDS: ACETAMINOPHEN 325 MG TABLET 650 MG PO (20:20)
[2024-10-09] VITALS (9 sets, daily range): BP systolic 128–146; BP diastolic 76–100; PULSE 84–110; RESP 16–18; TEMP 36.3–37.2; O2SAT 96–100
[2024-10-09] MEDS: ACETAMINOPHEN 325 MG TABLET 650 MG PO ×2 (02:31→21:55)
[2024-10-09] MEDS: IBUPROFEN 600 MG TABLET PO ×2 (02:31→21:55)
[2024-10-09 05:29] LABS: Hemoglobin 7.9 g/dL (12.0-15.0)
[2024-10-09] MEDS: LABETALOL HCL 100 MG TABLET 200 MG PO ×4 (05:48→21:54)
--- NOTE | 2024-10-09 08:08 | P.PNOB_ITS ---
OB - PN: Subj Subjective Date/time seen: 10/09/24 08:08 Interval history: SVE 5/100/-1 AROM large amount of clear, odorless fluid, anticipate vaginal delivery Patient comments: no complaints, pain well controlled, incisional pain, tolerating diet and flatus present OB - PN: Obj Data Labs 10/09/24 05:19 10/07/24 11:30 Labs: Laboratory Results - last 24 hr 10/09/24 05:19 Hgb 7.9 L D Hct 25.0 L OB - PN A/P Plan day: 1 Plan: routine care Comments: No problems, routine care, resolving pree Time Spent With Patient Time: Total time spent is greater than 50% in coordination of care (as documented) at patient's floor/unit and/or counseling patient: Exam 2 Const: General: comfortable, no acute distress and alert Resp: Effort & Inspection: normal respiratory effort Auscultation: no crackles, no rales and no rhonchi Cardio: Rate: regular rate Heart sounds: no click, no murmurs and no rubs GI: Inspection: non-distended GI Palp: No Tenderness to palpation present (GI) Auscultation: normal bowel sounds Other: Incision - CDI Extrem: General: normal to inspection, no pedal edema and no calf tenderness
[2024-10-09] MEDS: NIFEdipine 30 MG TAB.ER.24 PO (09:25)
[2024-10-09] MEDS: POLYSACCHARIDE IRON COMPLEX 150 MG CAPSULE PO ×2 (09:25→16:40)
[2024-10-09] MEDS: DOCUSATE SODIUM 100 MG CAPSULE PO ×2 (09:25→16:40)
[2024-10-09] MEDS: MULTIVIT/MIN/PREN/FOL AC/IRON TABLET 1 TAB PO (09:25)
--- NOTE | 2024-10-09 09:52 | PC.NURSE ---
This patient left on therapeutic leave pass to visit at [facility] NICU.
--- NOTE | 2024-10-09 12:59 | PC.NURSE ---
This patient returned from therapeutic leave pass.
--- NOTE | 2024-10-09 14:46 | WPDANLDPN2 ---
Anes-Prog Note L&D Date/Time: 10/09/24 14:46 Comfortable throughout: labor and delivery Neuraxial method: epidural Epidural/Spinal procedure site: clean & non-tender Neuro status: Neuro function grossly intact. Cardiovascular status: normal Respiratory status: normal Airway patency: baseline Mental status: baseline Post-Op hydration status: normal Vital Signs: Last Vital Signs Temp 36.3 C L 10/09/24 13:00 Pulse 88 10/09/24 14:03 Resp 16 10/09/24 13:00 BP 145/84 H 10/09/24 13:00 Pulse Ox 97 10/09/24 13:00 O2 Del Method Room Air 10/09/24 07:00 Pain score (VAS): 3/10 I/O: Intake & Output 10/08/24 10/09/24 10/09/24 23:59 07:59 15:59 Intake Total 4112.5 2600 1100 Output Total 6935 4200 450 Balance -2822.5 -1600 650 Post-procedural complaints: none Patient feedback: Patient satisfied with anesthetic care.
--- NOTE | 2024-10-09 16:08 | PC.NURSE ---
1320. Pt continues to use breast pump as baby was transferred to [facility] on day of . Asked mom about the need for a WIC referral and she declined. Discussed with mom if she has a breast pump at home and she reports she has a mom Cozi and has a nipple measurement tool at home to assess her sizing. Mom reports no pain with pumping and feels confident using the pump. Reported to primary RN.
[2024-10-09] MEDS: guaiFENesin 200 MG/10 ML UDC PO (19:20)
[2024-10-09] MEDS: AZITHROMYCIN 250 MG TABLET 500 MG PO (19:20)
[2024-10-09] MEDS: FLUTICASONE PROPIONATE 0.05% NA SPR 16 GM BTL (*BKC) 1 SPRAY NASAL (19:21)
--- NOTE | 2024-10-09 23:23 | PC.NURSE ---
1930- Pt c/o productive cough with green/yellow mucous. stuffy sinuses. This RN spoke with Dr. Cullen via phone call-new orders given
[2024-10-10 00:30] VITALS: BP 142/94; PULSE 83; RESP 16; TEMP 36.9; O2SAT 99
[2024-10-10 05:04] VITALS: PULSE 87
[2024-10-10] MEDS: ACETAMINOPHEN 325 MG TABLET 650 MG PO (05:04)
[2024-10-10] MEDS: IBUPROFEN 600 MG TABLET PO (05:04)
[2024-10-10] MEDS: LABETALOL HCL 100 MG TABLET 200 MG PO (05:04)
[2024-10-10 05:05] VITALS: BP 138/85; PULSE 87; RESP 16; TEMP 36.5; O2SAT 98
--- NOTE | 2024-10-10 07:29 | PM.OBPNVD ---
OB - PN: Subj Subjective Date/time seen: 10/10/24 07:29 Interval history: pp day 2 baby transferred would like d/c home hx preeclampsia on oral tx OB - PN: Obj Data Labs 10/09/24 05:19 10/07/24 11:30 OB - PN A/P Plan day: 2 Plan: routine care and discharge home Time Spent With Patient Time: Total time spent is greater than 50% in coordination of care (as documented) at patient's floor/unit and/or counseling patient: Review of Systems Review of Systems: All systems reviewed & are unremarkable except as noted in HPI and below Exam Const: General: cooperative and healthy appearing Chest: Chest palpation & inspection: normal inspection of the chest Resp: Effort & Inspection: normal respiratory effort Cardio: Rate: regular rate
--- NOTE | 2024-10-10 07:33 | PM.OBDSVD ---
DS: Admitting Diagnosis Discharge Date 10/10/24 Admitting Diagnosis preeclampsia DS: Discharge Diagnosis Discharge Diagnosis (1) Chronic hypertension with superimposed preeclampsia: Code(s): O11.9 - Pre-existing hypertension with pre-eclampsia, unspecified trimester Status: Acute (2) Vaginal delivery: Code(s): O80 - Encounter for full-term uncomplicated delivery Status: Acute OB - DS: Summary OB Procedures : None OB Procedures Intrapartum: Spontaneous Vag Delivery OB Procedures: : None Peripartum Data Laceration Description: None Episiotomy description: None Time Spent with Patient Time attestation: Total time spent providing and/or coordinating discharge services: DS: Data Data Completed and Pending Pending studies at discharge: Pending at discharge 10/08/24 02:36 Surgical [PTH] Routine Discharge Plan Discharge Attending physician on discharge: Berry Jones Discharging Clinician: Breanne Mims Patient Disposition: Home, Self-Care Activity: pelvic rest Diet: regular Patient Instructions: Antibiotic Form Stand Alone Forms: General Discharge Information Follow-up/Referrals: Berry Jones MD [Physician] - 1 Week Discharge Medications: New ibuprofen 600 mg Tablet 600 mg PO Q6H PRN (Reason: Cramping) Qty: 30 0RF nifedipine [Procardia XL] 30 mg Tablet Extended Release 24hr 30 mg PO QAM Qty: 30 0RF polysaccharide iron complex 150 mg iron Capsule 150 mg PO BIDWM Qty: 60 0RF labetalol 100 mg Tablet 200 mg PO Q8HR Qty: 180 0RF Continued cholecalciferol (vitamin D3) 125 mcg (5,000 unit) capsule 125 mcg PO DAILY Classic 28 mg iron- 800 mcg Tablet 1 tablet PO DAILY ferrous sulfate 325 mg (65 mg iron) Tablet 325 mg PO DAILY Discontinued aspirin 81 mg Tablet 81 mg PO DAILY Date of admission: 10/07/24 10:55 Primary Care Provider: PHYSICIAN NOT ON STAFF,NONSTAFF Admitting Provider: Berry Jones Attending physician on admission: Berry Jones Condition: Stable
[2024-10-10 08:10] VITALS: BP 121/76; PULSE 87; RESP 16; TEMP 36.5; O2SAT 98
[2024-10-10] MEDS: MULTIVIT/MIN/PREN/FOL AC/IRON TABLET 1 TAB PO (08:49)
[2024-10-10] MEDS: AZITHROMYCIN 250 MG TABLET PO (08:49)
[2024-10-10] MEDS: POLYSACCHARIDE IRON COMPLEX 150 MG CAPSULE PO (08:49)
[2024-10-10] MEDS: DOCUSATE SODIUM 100 MG CAPSULE PO (08:49)
[2024-10-10] MEDS: NIFEdipine 30 MG TAB.ER.24 PO (08:49)
[2024-10-11 09:01] VITALS: BP 135/80; PULSE 100; RESP 18; TEMP 36.7; O2SAT 100
== END 2024-10-10 09:13 | disposition home or self-care (01) | DRG 807 ==
LOC: ANHLDR 11:01 → ANHOB2 10-08 06:41
PROVIDERS: Advanced Practice Midwife; Admitting Provider Obstetrics & Gynecology; Visit Provider Obstetrics & Gynecology
DX: O14.14 Severe pre-eclampsia complicating childbirth (principal); Z37.0 Single live birth; O10.92 Unspecified pre-existing hypertension complicating childbirth; Z3A.36 36 weeks gestation of pregnancy
CPT/HCPCS: 36415; 80053; 84550; 85014; 85018; 85025; 86592; 86703; 86850; 86900; 86901; 88307; A9270; G0432; J0290; J2590; J2795; J3475; J7120

== ENCOUNTER 2025-08-13 16:31 | Outpatient (CLI) | payer OTHER, SELFPAY ==
[2025-08-13 16:42] LABS: Hematocrit 40.2 % (35.0-49.0); Hemoglobin 13.3 g/dL (12.0-15.0); Immature Granulocyte Percent A 0.4 % (0.0-0.0); Lymphocytes Absolute Auto 1.59 K/mm3 (1.10-4.50); Mean Corpuscular HGB Conc 33.1 g/dL (32-36); Mean Corpuscular Hemoglobin 30.8 pg (27.0-31.0); Mean Corpuscular Volume 93.1 fL (78.0-102.0); Nucleated Red Blood Cells Absolute Auto 0.00 K/mm3 (0.00-0.00); Nucleated Red Blood Cells Perc 0.0 % (0-0.0); Platelet Count Result 254 K/mm3 (150-420); Red Blood Count 4.32 M/mm3 (4.20-5.40); White Blood Count 7.0 K/mm3 (4.8-10.8)
[2025-08-13 17:09] LABS: Iron 58 ug/dL (37-170)
[2025-08-13 17:10] LABS: Alanine Aminotransferase 19 U/L (6-35); Albumin Level 4.6 g/dL (3.5-5.1); Alkaline Phosphatase 72 U/L (38-126); Anion Gap 10 mmol/L (4-12); Aspartate Amino Transferase 21 U/L (14-36); Bilirubin,Total 0.4 mg/dL (0.2-1.3); Blood Urea Nitrogen 16 mg/dL (7-17); Calcium 10.1 mg/dL (8.4-10.2); Carbon Dioxide 26 mmol/L (22-30); Chloride 106 mmol/L (98-107); Estimated Glomerular Filt Rate > 60; Glucose 84 mg/dL (65-110); Osmolality Calculated 294 mOsm/kg (285-295); Potassium 4.3 mmol/L (3.4-5.0); Sodium 142 mmol/L (137-145); Total Protein 8.4 g/dL (6.3-8.2)
[2025-08-13 17:18] LABS: Percent Iron Saturation 20 % (20-50)
--- OUTSIDE RECORDS SUMMARY | 2025-08-13 17:43 | XMS_ITS | Clinical Summary ---
Author Organization [facility] Address [address] [place] [phone] Phone Care Team Providers [facility] Name Role Phone Unavailable Primary Care Provider Unavailabl e Social History Tobacco Use Types Packs/Day Years Used Date Smoking Tobacco: Never Assessed Comments Unknown Sex and Gender Information Value Date Recorded Sex Assigned at Not on file Legal Sex Female 3:50 PM CDT Gender Identity Not on file Sexual Orientation Not on file Plan of Treatment Health Maintenance Due Date Last Done Comments HPV VACCINES (1 - 3-dose series) 2014 DTAP/TDAP/TD VACCINES (1 - Tdap) 2018 HEPATITIS B VACCINES (1 of 3 - 19+ 3-dose series) 11/2017 CERVICAL CANCER SCREENING 02/18/2020 HPV/Cotest (21-29) 02/18/2020 PAP SMEAR 02/18/2020 INFLUENZA VACCINE (#1) 2025 Insurance [employer] BLUE ACCESS/TRUE BLUE PPO
[2025-08-13 17:46] LABS: Ferritin 19.00 ng/mL (6.24-137)
== END 2025-08-13 16:32 | disposition home or self-care (01) ==
PROVIDERS: PCP Nurse Practitioner Family; Visit Provider Nurse Practitioner Family
DX: E61.1 Iron deficiency (principal); I10 Essential (primary) hypertension; D64.9 Anemia, unspecified; Z79.899 Other long term (current) drug therapy; E55.9 Vitamin D deficiency, unspecified
CPT/HCPCS: 36415; 80053; 82306; 82728; 83540; 83550; 85025